=== PATIENT | female | born 1970 | race Caucasian/White ===

== ENCOUNTER 2017-01-05 13:31 | Inpatient (IN) | payer SELFPAY ==
[2017-01-05] VITALS (9 sets, daily range): BP systolic 106–149; BP diastolic 65–85; PULSE 92–120; RESP 22–36; TEMP 97.8–98.3; O2SAT 99–100
[~2017-01-05] VITALS: Ht 165.1 cm; Wt 68.5 kg
--- NOTE | 2017-01-05 13:44 | PD ---
Physical Exam Time Seen by Provider: 13:39 Narrative 46 year old female with HX of Diabetes here with C/O of vomiting & elevated blood sugars since last night. She reports her blood sugar this morning was 550 , she administered Novolin 70/30 20 U prior to arrival. Patient seen at triage desk. VS reviewed. Patient waiting bed placement. Data Data Last Documented VS Vital Signs Date Time Temp Pulse Resp B/P Pulse Ox O2 Delivery O2 Flow Rate FiO2 01/05/17 13:33 120 36 140/85 99 Room Air MDM Supervised Visit with TATIANA: Estephania Boswell Jan 05, 2017 13:43
[2017-01-05] MEDS ORDERED: SODIUM CHLOR 0.9% 1000 ML INJ 1,000 ML IV ONE ×2 (13:54→14:24)
[2017-01-05] MEDS ORDERED: NOVO7030P2 SQ (13:56)
[2017-01-05 13:59] LABS: MEAN CORPUSCULAR HGB CONC 26.7 % (32.0-36.0)
[2017-01-05] MEDS: SODIUM CHLORIDE 0.9% FLUSH 10 ML FLUSH IVF PRN ×2 (14:05→15:09)
--- NOTE | 2017-01-05 14:09 | PD ---
HPI Chief Complaint: Diabetic Time Seen by Provider: 13:50 Travel History International Travel<30 days: No Contact w/Intl Traveler<30days: No Traveled to known affect area: No History of Present Illness HPI The patient is a 46-year-old female who presents emergency department for 2 days of elevated blood glucose levels, dehydration, decreased urine output , and generalized lethargy. The patient does have a history of diabetes with previous diabetic ketoacidosis and diabetic,. The patient takes insulin 70/30, 20 units twice a day, last use was this morning. However, the patient has been obtaining her NovoLog 70/30 from [facility], has not seen a physician in over one year. The patient recently moved to the area 2 weeks ago and does not have a local primary physician. She has been trying to drink Gatorade and Powerade secondary to her dehydration and polydipsia. The patient denies any chest pain , shortness of breath, abdominal pain, or dysuria. She does complain of generalized weakness. Symptoms are moderate, possibly exacerbated by elevated blood glucose levels, and there are no current alleviating factors. [facility] Past Medical History Diabetes: Yes ?: Not LMP: 12/15/16 Past Surgical History Narrative Surgical Appendectomy, tonsillectomy, section Social History Alcohol Use: No Tobacco Use: No Substance Use: No Allergies-Medications (Allergen,Severity, Reaction): Coded Allergies: No Known Allergies (Unverified , 01/05/17) Reported Meds & Prescriptions Reported Meds & Active Scripts Active Reported Novolin 70-30 Inj (Insulin Human Isoph/Insulin Regular) 1,000 Unit/10 Ml Vial 20 Units SQ BID Review of Systems Except as stated in HPI: all other systems reviewed are Neg General / Constitutional: No: Fever, Chills HENT: Positive: Lightheadedness Cardiovascular: No: Chest Pain or Discomfort Respiratory: No: Shortness of Breath Gastrointestinal: Positive: Nausea, No: Vomiting, Diarrhea, Abdominal Pain Genitourinary: Positive: Decreased Urinary Output, No: Dysuria Musculoskeletal: Positive: Weakness Neurologic: Positive: Weakness Endocrine: Positive: Polydipsia Physical Exam Narrative GENERAL: Awake, alert, pleasant 46-year-old female who appears her stated age and has mild tachypnea. SKIN: Focused skin assessment warm/dry. HEAD: Atraumatic. Normocephalic. EYES: Pupils equal and round. No scleral icterus. No injection or drainage. ENT: No nasal bleeding or discharge. Dehydration, poor dentition. NECK: Trachea midline. No JVD. CARDIOVASCULAR: Regular, tachycardic with a heart rate 120. RESPIRATORY: Tachypnea with a respiratory rate of 32, coos mild breathing. GASTROINTESTINAL: Abdomen soft, non-tender, nondistended. No rebound tenderness , well-healed midline incisional scar. MUSCULOSKELETAL: No obvious deformities. No clubbing. No cyanosis. No edema. NEUROLOGICAL: Awake and alert. No obvious cranial nerve deficits. Motor grossly within normal limits. Normal speech. Nonfocal. PSYCHIATRIC: Appropriate mood and affect; insight and judgment normal. Data Data Last Documented VS Vital Signs Date Time Temp Pulse Resp B/P Pulse Ox O2 Delivery O2 Flow Rate FiO2 01/05/17 14:43 97 22 146/85 100 01/05/17 14:02 Room Air Orders Electrocardiogram (01/05/17 13:54) Complete Blood Count With Diff (01/05/17 13:54) Comprehensive Metabolic Panel (01/05/17 13:54) Magnesium (Mg) (01/05/17 13:54) Phosphorus (Po4) (01/05/17 13:54) Beta Hydroxybutyrate (Acetone) (01/05/17 13:54) Lactic Acid (01/05/17 13:54) Urinalysis - C+S If Indicated (01/05/17 13:54) Chest, Single Ap (01/05/17 13:54) Blood Gas Venous (Vbg) (01/05/17 13:54) Blood Glucose (01/05/17 13:54) Blood Glucose (01/05/17 14:24) Ecg Monitoring (01/05/17 13:54) Iv Access Insert/Monitor (01/05/17 13:54) Oximetry (01/05/17 13:54) NPO (01/05/17 13:54) Sodium Chlor 0.9% 1000 Ml Inj (Ns 1000 M (01/05/17 13:54) Sodium Chlor 0.9% 1000 Ml Inj (Ns 1000 M (01/05/17 14:24) Sodium Chloride 0.9% Flush (Ns Flush) (01/05/17 14:00) Troponin I (01/05/17 13:54) Lipase (01/05/17 13:54) Ketorolac Inj (Toradol Inj) (01/05/17 14:45) Logging Equipment Mechanic / Telemetry [id number] (01/05/17 15:24) ^ Insert Iv (01/05/17 15:24) Diet Npo (01/05/17 Dinner) Sodium Chlor 0.9% 1000 Ml Inj (Ns 1000 M (01/05/17 15:24) Dext 5%-Nacl 0.9% 1000 Ml Inj (D5w-Ns 10 (01/05/17 15:24) Insulin Human Regular Inj (Novolin R Inj (01/05/17 15:30) Insulin Regular (Iv Infusion) (Novolin R (01/05/17 15:30) Potassium Chlor 40 Meq Premix (Kcl 40 Me (01/05/17 15:30) Potassium Chlor 40 Meq Premix (Kcl 40 Me (01/05/17 15:30) Potassium Chlor 20 Meq Premix (Kcl 20 Me (01/05/17 15:30) Potassium Chlor 20 Meq Premix (Kcl 20 Me (01/05/17 15:30) Potassium Chlor 20 Meq Premix (Kcl 20 Me (01/05/17 15:30) Potassium Chlor 20 Meq Premix (Kcl 20 Me (01/05/17 15:30) Potassium Chlor 20 Meq Premix (Kcl 20 Me (01/05/17 15:30) Potassium Chlor 20 Meq Premix (Kcl 20 Me (01/05/17 15:30) Sodium Bicarbonate 8.4% Inj (Sodium Bica (01/05/17 15:30) Sodium Bicarbonate 8.4% Inj (Sodium Bica (01/05/17 15:30) Sodium Phosphate Inj (Sodium Phosphate I (01/05/17 15:30) Hemoglobin (Hgb) A1c (01/05/17 15:24) Basic Metabolic Panel (Bmp) (01/05/17 20:24) Basic Metabolic Panel (Bmp) (01/06/17 02:24) Basic Metabolic Panel (Bmp) (01/06/17 08:24) Basic Metabolic Panel (Bmp) (01/06/17 14:24) Magnesium (Mg) (01/05/17 20:24) Magnesium (Mg) (01/06/17 02:24) Magnesium (Mg) (01/06/17 08:24) Magnesium (Mg) (01/06/17 14:24) Phosphorus (Po4) (01/05/17 20:24) Phosphorus (Po4) (01/06/17 02:24) Phosphorus (Po4) (01/06/17 08:24) Phosphorus (Po4) (01/06/17 14:24) Beta Hydroxybutyrate (Acetone) (01/06/17 02:24) Beta Hydroxybutyrate (Acetone) (01/06/17 14:24) Urine Culture (01/05/17 15:00) Admit Order (Ed Use Only) (01/05/17 15:50) Labs Laboratory Tests Test 01/05/17 01/05/17 01/05/17 14:00 14:04 15:00 White Blood Count 32.6 TH/MM3 Red Blood Count 6.84 MIL/MM3 Hemoglobin 13.4 GM/DL Hematocrit 50.0 % Mean Corpuscular Volume 73.1 FL Mean Corpuscular Hemoglobin 19.5 PG Mean Corpuscular Hemoglobin 26.7 % Concent Red Cell Distribution Width 19.9 % Platelet Count 375 TH/MM3 Mean Platelet Volume 8.5 FL Neutrophils (%) (Auto) 90.0 % Lymphocytes (%) (Auto) 5.6 % Monocytes (%) (Auto) 4.1 % Eosinophils (%) (Auto) 0.1 % Basophils (%) (Auto) 0.2 % Neutrophils # (Auto) 29.3 TH/MM3 Lymphocytes # (Auto) 1.8 TH/MM3 Monocytes # (Auto) 1.3 TH/MM3 Eosinophils # (Auto) 0.0 TH/MM3 Basophils # (Auto) 0.1 TH/MM3 CBC Comment AUTO DIFF Sodium Level 133 MEQ/L Potassium Level 5.3 MEQ/L Chloride Level 104 MEQ/L Carbon Dioxide Level 5.6 MEQ/L Anion Gap 23 MEQ/L Blood Urea Nitrogen 16 MG/DL Creatinine 1.16 MG/DL Estimat Glomerular Filtration 51 ML/MIN Rate Random Glucose 495 MG/DL Lactic Acid Level 2.4 mmol/L Calcium Level 9.9 MG/DL Phosphorus Level 5.6 MG/DL Magnesium Level 2.5 MG/DL Total Bilirubin 0.3 MG/DL Aspartate Amino Transf 15 U/L (AST/SGOT) Alanine Aminotransferase 19 U/L (ALT/SGPT) Alkaline Phosphatase 170 U/L Troponin I 0.02 NG/ML Total Protein 10.2 GM/DL Albumin 4.7 GM/DL Lipase 107 U/L B-Hydroxybutyrate 11.47 MMOL/L Blood Gas Puncture Site I.V. Blood Gas Patient Temperature 98.6 Venous Blood pH 6.98 Venous Blood Partial Pressure 25 mmHg CO2 Venous Blood Partial Pressure 27 mmHg O2 Venous Blood HCO3 6 mmol/L Venous Blood Oxygen Saturation 28 % Venous Blood Oxygen Content 5.1 Vol % Venous Blood Base Excess -23.6 mmol/L Oxygen Delivery Device ROOM AIR Blood Gas Inspired Oxygen 21 % Urine Color LIGHT-YELLOW Urine Turbidity CLEAR Urine pH 5.5 Urine Specific [place] 1.019 Urine Protein 30 mg/dL Urine Glucose (UA) 1000 mg/dL Urine Ketones 150 mg/dL Urine Occult Blood TRACE Urine Nitrite NEG Urine Bilirubin NEG Urine Urobilinogen LESS THAN 2.0 MG/DL Urine Leukocyte Esterase LARGE Urine RBC 8 /hpf Urine WBC 11 /hpf Urine Squamous Epithelial 1 /hpf Cells Urine Bacteria RARE /hpf Microscopic Urinalysis Comment CULTURE INDICATED MDM Medical Decision Making Medical Screen Exam Complete: Yes Emergency Medical Condition: Yes Medical Record Reviewed: Yes Interpretation(s) EKG reveals normal sinus rhythm with a rate in 92. Nonspecific ST changes. Differential Diagnosis Differential diagnosis includes DKA, hyperglycemia, dehydration, electrolyte abnormality, noncompliance. Narrative Course IV was established, labs are drawn and sent, and the patient was placed on cardiac telemetry monitoring and continuous pulse oximetry monitoring. EKG was ordered and interpreted. The patient was administered 2 L of IV fluids and Accu -Cheks were obtained to 30 minutes 2. VBG was sent to lab. VBG reveals pH is 6.980 with PCO2 25.2 and bicarbonate of 5.6 consistent with partially compensated metabolic acidosis, most likely secondary to DKA. The patient's anion gap is 23, bicarbonate 5.6, UA reveals a few WBCs, may be contaminant versus UTI. Therefore, patient was administered Rocephin 1 g intravenously. Patient was placed on an insulin drip after receiving a bolus of insulin based on weight. The patient received 6 units of insulin and then was placed on an insulin drip. I discussed the patient with the on-call children's zoo caretaker, Dr. Mendez, who agrees with admission. Critical Care Narrative Aggregate critical care time was 40 minutes. Time to perform other separately billable procedures was not included in the critical care time. My time did not include minutes spent treating any other patients simultaneously or on activities that did not directly contribute to the patient's treatment. The services I provided to this patient were to treat and/or prevent clinically significant deterioration that could result in: Dehydration, sepsis, acute renal failure, arrhythmia, . I provided critical care services requiring my management, as noted below: Chart data review, documentation time, medication orders and management, vital sign assessments/reviewing monitor data, ordering and reviewing lab tests, ordering and interpreting/reviewing x-rays and diagnostic studies, care of the patient and discussion of the patient with the admitting physicians. Physician Communication Physician Communication I discussed the patient with Dr. Mendez who agrees with admission. Diagnosis Primary Impression: DKA (diabetic ketoacidoses) Qualified Code: E10.10 - Diabetic ketoacidosis without coma associated with type 1 diabetes mellitus Additional Impressions: Dehydration UTI (urinary tract infection) Qualified Code: N30.00 - Acute cystitis without hematuria Admitting Information Admitting Physician Requests: Admit Condition: Serious Kg Borrego MD Jan 05, 2017 14:08
[2017-01-05 14:14] LABS: BLOOD GAS VENOUS BASE EXCESS -23.6 mmol/L (-2-2); BLOOD GAS VENOUS HCO3 6 mmol/L (22-26); BLOOD GAS VENOUS O2 CONTENT 5.1 Vol % (9.0-17.0); BLOOD GAS VENOUS O2 HGB SAT 28 % (70-76); BLOOD GAS VENOUS PCO2 25 mmHg (44-48); BLOOD GAS VENOUS PO2 27 mmHg (35-40); BLOOD GAS VENOUS pH 6.98 (7.360-7.400); TEMP CORR TO 98.6
[2017-01-05 14:15] LABS: CRITICAL VALUE YES; DRAW SITE I.V.; FIO2 21 %; OXYGEN DEVICE ROOM AIR; STAT YES
[2017-01-05 14:27] LABS: AUTOMATED NEUTROPHIL # 29.3 TH/MM3 (1.8-7.7); BASOPHIL # 0.1 TH/MM3 (0-0.2); BASOPHIL % 0.2 % (0.0-2.0); EOSINOPHIL % 0.1 % (0.0-4.0); LYMPH % 5.6 % (9.0-44.0); LYMPHOCYTE # 1.8 TH/MM3 (1.0-4.8); MEAN CELL VOLUME 73.1 FL (80.0-100.0); MEAN CORPUSCULAR HEMOGLOBIN 19.5 PG (27.0-34.0); MONO % 4.1 % (0.0-8.0); PLATELET COUNT 375 TH/MM3 (150-450); RED BLOOD COUNT 6.84 MIL/MM3 (4.00-5.30); RED CELL DISTRIBUTION WIDTH 19.9 % (11.6-17.2); WHITE BLOOD COUNT 32.6 TH/MM3 (4.0-11.0)
[2017-01-05 14:30] LABS: HEMO FLAGS AUTO DIFF
--- NOTE | 2017-01-05 14:43 | RADRPT ---
EXAM DATE/TIME: 01/05/2017 14:08 [place] COMPARISON: No previous studies available for comparison. INDICATIONS : Patient has been short of breath since yesterday. She also states her blood sugar is high. MEDICAL HISTORY : Diabetes mellitus type II. SURGICAL HISTORY : None. ENCOUNTER: Initial ACUITY: 1 day PAIN SCORE: 0/10 LOCATION: Bilateral chest FINDINGS: A single view of the chest demonstrates the lungs to be symmetrically aerated without evidence of mas s, infiltrate or effusion. The cardiomediastinal contours are unremarkable. Osseous structures are intact. CONCLUSION: 1. No acute cardiopulmonary findings are identified. Luis Rey MD on January 05, 2017 at 14:41 Board Certified Radiologist. This report was verified electronically.
[2017-01-05] MEDS ORDERED: KETOROLAC TROMETHAMINE 30 MG/ML (IVP) VIAL IV PUSH ONE (14:45)
[2017-01-05 15:12] LABS: ALKALINE PHOSPHATASE 170 U/L (45-117); ALT (GPT) 19 U/L (10-53); ANION GAP 23 MEQ/L (5-15); AST (GOT) 15 U/L (15-37); BETA-HYDROXYBUTYRATE 11.47 MMOL/L (0.00-0.39); BICARBONATE 5.6 MEQ/L (21.0-32.0); BLOOD UREA NITROGEN 16 MG/DL (7-18); CHLORIDE 104 MEQ/L (98-107); GLOMERULAR FILTRATION RATE 51 ML/MIN (>89); MAGNESIUM 2.5 MG/DL (1.5-2.5); POTASSIUM 5.3 MEQ/L (3.5-5.1); SODIUM (NA) 133 MEQ/L (136-145); TOTAL BILIRUBIN ADULT 0.3 MG/DL (0.2-1.0)
[2017-01-05] MEDS ORDERED: DEXT 5%-NACL 0.9% 1000 ML INJ 1,000 ML IV SCH (15:24)
[2017-01-05] MEDS ORDERED: POTASSIUM CHLOR 40 MEQ PREMIX 100 ML IV PRN ×6 (15:30→16:15)
[2017-01-05] MEDS ORDERED: INSULIN REGULAR (IV INFUSION) 100 UNITS in SODIUM CHLORIDE 0.9% INJ 99 ML IV SCH ×2 (15:30→16:15)
[2017-01-05] MEDS ORDERED: SODIUM PHOSPHATE INJ 15 MMOL in SODIUM CHLORIDE 0.9% INJ 100 ML IV PRN ×2 (15:30→16:15)
[2017-01-05] MEDS ORDERED: SODIUM BICARBONATE 8.4% SOLN 50 MEQ/50 ML VIAL IV PRN ×4 (15:30→16:15)
[2017-01-05] MEDS ORDERED: INSULIN HUMAN REGULAR 1,000 UNITS/10 ML VIAL IV PUSH ONE (15:30)
[2017-01-05] MEDS ORDERED: POTASSIUM CHLOR 20 MEQ PREMIX 100 ML IV PRN ×13 (15:30→16:15)
[2017-01-05 15:41] LABS: BACTERIA, URINE RARE /hpf; BLOOD, URINE TRACE (NEG); COMMENT (UR) CULTURE INDICATED; CULTURE IF INDICATED CULTURE INDICATED; GLUCOSE,URINE 1000 mg/dL (NEG); KETONE, URINE 150 mg/dL (NEG); NITRITE,URINE NEG (NEG); PH, URINE 5.5 (5.0-8.5); SQUAMOUS EPITHELIAL CELL URINE 1 /hpf (0-5); URINE COLOR LIGHT-YELLOW (YELLW/STRAW)
[2017-01-05] MEDS: SODIUM CHLOR 0.9% 1000 ML INJ 1,000 ML IV SCH ×5 (15:53→23:38)
[2017-01-05] MEDS: DEXT 5%-NACL 0.9% 1000 ML INJ 1,000 ML IV SCH ×2 (16:12→21:12)
[2017-01-05] MEDS ORDERED: POTASSIUM PHOSPHATE MONOBASIC 500 MG TAB PO PRN (16:15)
[2017-01-05] MEDS ORDERED: POTASSIUM CHLORIDE 25 MEQ EFFERVESCENT TAB PO PRN (16:15)
[2017-01-05] MEDS ORDERED: ONDANSETRON HCL 4 MG/2 ML VIAL IV PRN (16:15)
[2017-01-05] MEDS ORDERED: BISACODYL 10 MG SUPP RECTAL PRN (16:15)
[2017-01-05] MEDS ORDERED: RESP: ALBUTEROL 2.5 MG/IPRATROPIUM 0.5 MG NEB (PRN) INH (16:15)
[2017-01-05] MEDS ORDERED: POTASSIUM PHOSPHATE MONOBASIC 500 MG TAB PO/TUBE PRN (16:15)
[2017-01-05] MEDS ORDERED: LACTULOSE SYRUP 20 GM/30 ML CUP PO PRN (16:15)
[2017-01-05] MEDS ORDERED: CHLORHEXIDINE GLUCONATE 2 % 1 PACK (2 CLOTHS) TOP PRN ×2 (16:15→16:30)
[2017-01-05] MEDS ORDERED: SODIUM PHOSPHATE INJ 30 MMOL in SODIUM CHLOR 0.9% 250 ML INJ 240 ML IV PRN (16:15)
[2017-01-05] MEDS ORDERED: ACETAMINOPHEN 325 MG TAB PO PRN (16:15)
[2017-01-05] MEDS ORDERED: MISCELLANEOUS NURSING INFORMATION XX SCH ×2 (16:15→16:30)
[2017-01-05] MEDS ORDERED: MAGNESIUM HYDROXIDE SUSP 30 ML CUP PO PRN (16:15)
[2017-01-05] MEDS ORDERED: SODIUM CHLORIDE 0.9% FLUSH 10 ML FLUSH IV FLUSH PRN (16:15)
[2017-01-05] MEDS ORDERED: MAGNESIUM OXIDE 400 MG TAB PO PRN (16:15)
[2017-01-05] MEDS ORDERED: MAGNESIUM SULFATE INJ 2 GM in SODIUM CHLORIDE 0.9% INJ 96 ML IV PRN (16:15)
[2017-01-05] MEDS ORDERED: SENNOSIDES 8.6 MG TAB PO PRN (16:15)
[2017-01-05] MEDS ORDERED: MAGNESIUM SULFATE INJ 4 GM in SODIUM CHLORIDE 0.9% INJ 92 ML IV PRN (16:15)
[2017-01-05] MEDS ORDERED: POTASSIUM PHOSPHATE INJ 30 MMOL in SODIUM CHLOR 0.9% 250 ML INJ 250 ML IV PRN (16:15)
[2017-01-05] MEDS ORDERED: cefTRIAXone INJ 1,000 MG in SODIUM CHLORIDE 0.9% INJ 100 ML IV ONE (16:15)
--- NOTE | 2017-01-05 16:41 | HHI.HP ---
HPI Service Critical Care Medicine Primary Care Physician No Primary Care Physician Admission Diagnosis DKA, dehydration Diagnosis: Travel History International Travel<30 Days: No Contact w/Intl Traveler <30 Da: No Traveled to Known Affected Are: No History of Present Illness The patient is a 46-year-old female who presents emergency department for 2 days of elevated blood glucose levels, dehydration, decreased urine output , and generalized lethargy. The patient does have a history of diabetes with previous diabetic ketoacidosis and diabetic,. The patient takes insulin 70/30, 20 units twice a day, last use was this morning. However, the patient has been obtaining her NovoLog 70/30 from [facility], has not seen a physician in over one year. The patient recently moved to the area 2 weeks ago and does not have a local primary physician. The patient denies any chest pain, shortness of breath , abdominal pain, or dysuria. She does complain of generalized weakness. Symptoms are moderate, possibly exacerbated by elevated blood glucose levels, and there are no current alleviating factors. Upon admission to the ED, the patient was noted to have ketonuria, with a blood glucose level 495. Critical care medicine was consulted for management. History PFSH Past Medical History Diabetes: Yes ?: Not LMP: 12/15/16 Past Surgical History Narrative Surgical Appendectomy, tonsillectomy, section Social History Alcohol Use: No Tobacco Use: No Substance Use: No Allergies-Medications Allergies-Medications (Allergen,Severity, Reaction): Coded Allergies: No Known Allergies (Unverified , 01/05/17) Reported Meds & Prescriptions Reported Meds & Active Scripts Active Reported Novolin 70-30 Inj (Insulin Human Isoph/Insulin Regular) 1,000 Unit/10 Ml Vial 20 Units SQ BID ROS Review of Systems Except as stated in HPI: all other systems reviewed are Neg General / Constitutional: No: Fever, Chills HENT: Positive: Lightheadedness Cardiovascular: No: Chest Pain or Discomfort Respiratory: No: Shortness of Breath Gastrointestinal: Positive: Nausea, No: Vomiting, Diarrhea, Abdominal Pain Genitourinary: Positive: Decreased Urinary Output, No: Dysuria Musculoskeletal: Positive: Weakness Neurologic: Positive: Weakness Endocrine: Positive: Polydipsia Past Family Social History Allergies: Coded Allergies: No Known Allergies (Unverified , 01/05/17) Past Medical History Diabetes mellitus Reported Medications see MAR Active Ordered Medications see [facility] Physical Exam Vital Signs Vital Signs Date Time Temp Pulse Resp B/P Pulse Ox O2 Delivery O2 Flow Rate FiO2 01/05/17 14:43 97 22 146/85 100 01/05/17 14:02 22 100 Room Air 01/05/17 13:57 98 26 100 Room Air 01/05/17 13:33 120 36 140/85 99 Room Air Physical Exam GENERAL: Underweight female tachypneic noted moderate distress SKIN: Warm and dry. Skin turgor poor. HEAD: Atraumatic. Normocephalic. EYES: Pupils equal and round. No scleral icterus. No injection or drainage. ENT: No nasal bleeding or discharge. Mucous membranes pink and dry. NECK: Trachea midline. No JVD. Uvula midline CARDIOVASCULAR: Tachycardic rate, regular rhythm. RESPIRATORY: No accessory muscle use. Clear to auscultation. Breath sounds equal bilaterally. GASTROINTESTINAL: Abdomen soft, non-tender, nondistended. No guarding. MUSCULOSKELETAL: Extremities without clubbing, cyanosis, or edema. No obvious deformities. NEUROLOGICAL: Awake and alert. RASS 0. No gross focal/sensory deficits. Follows commands in all 4 extremities. Laboratory Laboratory Tests Test 01/05/17 01/05/17 01/05/17 14:00 14:04 15:00 White Blood Count 32.6 Red Blood Count 6.84 Hemoglobin 13.4 Hematocrit 50.0 Mean Corpuscular Volume 73.1 Mean Corpuscular Hemoglobin 19.5 Mean Corpuscular Hemoglobin 26.7 Concent Red Cell Distribution Width 19.9 Platelet Count 375 Mean Platelet Volume 8.5 Neutrophils (%) (Auto) 90.0 Lymphocytes (%) (Auto) 5.6 Monocytes (%) (Auto) 4.1 Eosinophils (%) (Auto) 0.1 Basophils (%) (Auto) 0.2 Neutrophils # (Auto) 29.3 Lymphocytes # (Auto) 1.8 Monocytes # (Auto) 1.3 Eosinophils # (Auto) 0.0 Basophils # (Auto) 0.1 CBC Comment AUTO DIFF Sodium Level 133 Potassium Level 5.3 Chloride Level 104 Carbon Dioxide Level 5.6 Anion Gap 23 Blood Urea Nitrogen 16 Creatinine 1.16 Estimat Glomerular Filtration 51 Rate Random Glucose 495 Lactic Acid Level 2.4 Calcium Level 9.9 Phosphorus Level 5.6 Magnesium Level 2.5 Total Bilirubin 0.3 Aspartate Amino Transf 15 (AST/SGOT) Alanine Aminotransferase 19 (ALT/SGPT) Alkaline Phosphatase 170 Troponin I 0.02 Total Protein 10.2 Albumin 4.7 Lipase 107 B-Hydroxybutyrate 11.47 Blood Gas Puncture Site I.V. Blood Gas Patient Temperature 98.6 Venous Blood pH 6.98 Venous Blood Partial Pressure 25 CO2 Venous Blood Partial Pressure 27 O2 Venous Blood HCO3 6 Venous Blood Oxygen Saturation 28 Venous Blood Oxygen Content 5.1 Venous Blood Base Excess -23.6 Oxygen Delivery Device ROOM AIR Blood Gas Inspired Oxygen 21 Urine Color LIGHT-YELLOW Urine Turbidity CLEAR Urine pH 5.5 Urine Specific [place] 1.019 Urine Protein 30 Urine Glucose (UA) 1000 Urine Ketones 150 Urine Occult Blood TRACE Urine Nitrite NEG Urine Bilirubin NEG Urine Urobilinogen LESS THAN 2.0 Urine Leukocyte Esterase LARGE Urine RBC 8 Urine WBC 11 Urine Squamous Epithelial 1 Cells Urine Bacteria RARE Microscopic Urinalysis Comment CULTURE INDICATED Date/Time Procedure Status Source Growth 01/05/17 15:00 Urine Culture Received Urine Clean Catch Pending Result Diagram: 01/05/17 1400 01/05/17 1400 Imaging Last Impressions Chest X-Ray 01/05/17 1354 Signed Impressions: Service Date/Time: Tuesday, January 05, 2017 14:08 - CONCLUSION: 1. No acute cardiopulmonary findings are identified. Luis Rey MD Septic Shock Reassessment Heart: Other (tachycardia) Lungs: Clear Skin: Warm, Dry Peripheral Pulses: Bounding Right Radial Bounding Left Radial Bounding Right Dorsalis Pedis Bounding Left Dorsalis Pedis Assessment and Plan Assessment and Plan This is a 46-year-old female, with presumed UTI and DKA. Currently with signs of dehydration, hypovolemia. Neurologic: GCS 15 Neurochecks per ICU protocol Respiratory Dyspnea Maintain O2 sat greater than 92% Oxygen 1-4 L/m via nasal cannula Bronchodilators every 2 hours when necessary for wheezing hest x-ray no acute process Cardiovascular: Sinus tachycardia secondary to hypovolemia due to DKA Telemetry Obtain EKG Renal: Insert Leiva catheter -- Strict I/Os FEN/GI: Diabetic ketoacidosis Metabolic acidosis secondary to DKA Bolus 3 L 0.9 normal saline Insulin infusion per DKA protocol Continue hydration Sodium bicarbonate 100 mEq IV push now Heme/ID: Presumed UTI Follow up urine culture results Obtain blood cultures 2 Empiric dosing Zosyn Obtain lactate levels Endocrine: Diabetes mellitus DKA Insulin infusion per DKA protocol, transition per DKA protocol Prophylaxis: GI Prophylaxis Protonix DVT Prophylaxis -- SCDs Heparin twice a day Lines: Peripheral IVs 2 Dispo: This patient remains critically ill with one or more organ systems which are or may become a threat to life. I have spent in excess of 35 minutes discontinuously in the care and management of this patient. This time is exclusive of procedures, and includes, but is not limited to, evaluation of the patient, review of the medical record, discussions with family, consultants, nursing staff, or respiratory therapy, and documentation in the medical record. Code Status Full Discussed Condition With Patient, ED RN at bedside Flory Mendez MD Jan 05, 2017 16:41
[2017-01-05 16:49] LABS: BANDS 5 % (0-6); BASOPHILS 1 % (0-2); NEUTROPHIL # MANUAL DIFF 28.7 TH/MM3 (1.8-7.7); POLYS (SEG NEUTROPHILS) 83 % (16-70); SCAN/DIFF FINAL DIFF MANUAL; WBC DIFF SAMPLE 100
[2017-01-05 16:50] LABS: OVALOCYTES 1+ (NORMAL); PLATELET ESTIMATE SMEAR NORMAL (NORMAL); PLATELET MORPHOLOGY NORMAL (NORMAL)
[2017-01-05] MEDS: ARTIFICIAL TEARS OPTH SOLN 15 ML BTL EACH EYE SCH (18:00)
[2017-01-05] MEDS: PIPERACIL-TAZO 4.5 GM PREMIX 100 ML IV SCH ×2 (18:03→23:32)
[2017-01-05] MEDS: HEPARIN SODIUM - SQ 10,000 UNITS/ML VIAL SQ SCH (18:03)
[2017-01-05 18:40] LABS: LACTIC ACID GHOST NOT REPORTABLE
[2017-01-05] MEDS: SODIUM CHLORIDE 0.9% FLUSH 10 ML FLUSH IV FLUSH SCH (21:00)
[2017-01-05 21:14] LABS: MEAN CORPUSCULAR HGB CONC 28.2 % (32.0-36.0)
[2017-01-05] MEDS: FAMOTIDINE 20 MG TAB PO SCH (21:23)
[2017-01-05] MEDS: DOCUSATE SODIUM 50 MG/SENNA 8.6 MG TAB PO SCH (21:23)
[2017-01-05] MEDS: RESP: ALBUTEROL 2.5 MG/IPRATROPIUM 0.5 MG NEB (SCH) INH (22:10)
[2017-01-05 23:47] LABS: ANION GAP 18 MEQ/L (5-15); BICARBONATE 7.4 MEQ/L (21.0-32.0); BLOOD UREA NITROGEN 10 MG/DL (7-18); CHLORIDE 119 MEQ/L (98-107); GLOMERULAR FILTRATION RATE 92 ML/MIN (>89); MAGNESIUM 1.8 MG/DL (1.5-2.5); POTASSIUM 4.1 MEQ/L (3.5-5.1); SODIUM (NA) 144 MEQ/L (136-145)
[2017-01-06] VITALS (22 sets, daily range): BP systolic 83–118; BP diastolic 50–69; PULSE 72–96; RESP 12–26; TEMP 98.3–99.5; O2SAT 98–100
[2017-01-06] MEDS: DEXT 5%-NACL 0.9% 1000 ML INJ 1,000 ML IV SCH ×2 (02:12→07:38)
[2017-01-06] MEDS: CHLORHEXIDINE GLUCONATE 2 % 1 PACK (2 CLOTHS) TOP SCH (03:10)
[2017-01-06] MEDS: RESP: ALBUTEROL 2.5 MG/IPRATROPIUM 0.5 MG NEB (SCH) INH ×4 (03:18→19:59)
[2017-01-06] MEDS ORDERED: CHLORHEXIDINE GLUCONATE 2 % 1 PACK (2 CLOTHS) TOP SCH (04:00)
[2017-01-06 04:01] LABS: HEMATOCRIT 34.3 % (35.0-46.0); MEAN CELL VOLUME 68.6 FL (80.0-100.0); MEAN CORPUSCULAR HEMOGLOBIN 19.4 PG (27.0-34.0); PLATELET COUNT 230 TH/MM3 (150-450); RED CELL DISTRIBUTION WIDTH 18.9 % (11.6-17.2); REVIEW FLAG FINAL
[2017-01-06] MEDS: SODIUM CHLOR 0.9% 1000 ML INJ 1,000 ML IV SCH ×4 (04:12→23:15)
[2017-01-06 04:39] LABS: BETA-HYDROXYBUTYRATE 2.79 MMOL/L (0.00-0.39); BICARBONATE 11.5 MEQ/L (21.0-32.0); MAGNESIUM 1.6 MG/DL (1.5-2.5); POTASSIUM 3.2 MEQ/L (3.5-5.1)
[2017-01-06] MEDS: HEPARIN SODIUM - SQ 10,000 UNITS/ML VIAL SQ SCH ×2 (05:06→16:40)
[2017-01-06] MEDS: PIPERACIL-TAZO 4.5 GM PREMIX 100 ML IV SCH ×4 (05:06→23:15)
[2017-01-06] MEDS: DOCUSATE SODIUM 50 MG/SENNA 8.6 MG TAB PO SCH ×2 (07:37→20:20)
[2017-01-06] MEDS: POTASSIUM CHLOR 20 MEQ PREMIX 100 ML IV PRN ×2 (07:37→10:11)
[2017-01-06] MEDS: FAMOTIDINE 20 MG TAB PO SCH ×2 (07:37→20:20)
[2017-01-06] MEDS: SODIUM CHLORIDE 0.9% FLUSH 10 ML FLUSH IV FLUSH SCH ×2 (07:47→20:21)
[2017-01-06] MEDS: ARTIFICIAL TEARS OPTH SOLN 15 ML BTL EACH EYE SCH ×3 (09:00→17:57)
[2017-01-06] MEDS ORDERED: DEXTROSE 50% IN WATER 50 ML VIAL(D50) IV PRN (10:45)
[2017-01-06] MEDS ORDERED: DC previous DKA orders (HMC 1917) ONE (10:45)
[2017-01-06] MEDS ORDERED: DC Insulin drip 2 hrs post basal insulin dose ONE (10:45)
[2017-01-06] MEDS ORDERED: GLUCAGON 1 MG/ML VIAL OTHER PRN (10:45)
[2017-01-06] MEDS ORDERED: INSULIN DETEMIR 100 UNITS/ML VIAL SQ SCH (10:45)
[2017-01-06] MEDS: INSULIN ASPART SUPPLEMENTAL SCALE SQ SCH ×3 (11:00→20:20)
[2017-01-06 11:08] LABS: BICARBONATE 17.3 MEQ/L (21.0-32.0); MAGNESIUM 1.5 MG/DL (1.5-2.5); POTASSIUM 3.1 MEQ/L (3.5-5.1)
--- NOTE | 2017-01-06 11:14 | HHI.CCPN ---
Subjective Remarks/Hospital Course The patient is a 46-year-old female who presents emergency department for 2 days of elevated blood glucose levels, dehydration, decreased urine output , and generalized lethargy. The patient does have a history of diabetes with previous diabetic ketoacidosis and diabetic,. The patient takes insulin 70/30, 20 units twice a day, last use was this morning. However, the patient has been obtaining her NovoLog 70/30 from [facility], has not seen a physician in over one year. The patient recently moved to the area 2 weeks ago and does not have a local primary physician. The patient denies any chest pain, shortness of breath , abdominal pain, or dysuria. She does complain of generalized weakness. Symptoms are moderate, possibly exacerbated by elevated blood glucose levels, and there are no current alleviating factors. Upon admission to the ED, the patient was noted to have ketonuria, with a blood glucose level 495. Critical care medicine was consulted for management. Subjective: 01/06: Patient transitioned from insulin infusion to sliding-scale insulin this a.m.. BMP pending. She was noted to have a vaginal discharge CERTIFIED WELLNESS PROGRAM COORDINATOR was consulted. By mouth diet 2200 ADA calorie instituted. Objective Vital Signs Date Time Temp Pulse Resp B/P Pulse Ox O2 Delivery O2 Flow Rate FiO2 01/06/17 10:00 81 01/06/17 09:00 17 89/52 100 01/06/17 08:51 21 01/06/17 04:00 99.2 01/05/17 18:08 Room Air Intake and Output 01/05/17 01/05/17 01/05/17 07:59 15:59 23:59 Intake Total 1612 ml Output Total 895 ml Balance 717 ml Result Diagram: 01/06/17 0320 01/06/17 0320 Other Results Laboratory Tests Test 01/05/17 14:04 Blood Gas Puncture Site I.V. Blood Gas Patient Temperature 98.6 Venous Blood pH 6.98 (7.360-7.400) Venous Blood Partial Pressure 25 mmHg (44-48) CO2 Venous Blood Partial Pressure 27 mmHg (35-40) O2 Venous Blood HCO3 6 mmol/L (22-26) Venous Blood Oxygen Saturation 28 % (70-76) Venous Blood Oxygen Content 5.1 Vol % (9.0-17.0) Venous Blood Base Excess -23.6 mmol/L (-2-2) Oxygen Delivery Device ROOM AIR Blood Gas Inspired Oxygen 21 % Imaging Last Impressions Chest X-Ray 01/05/17 1354 Signed Impressions: Service Date/Time: Thursday, January 05, 2017 14:08 - CONCLUSION: 1. No acute cardiopulmonary findings are identified. Luis Rey MD Objective Remarks GENERAL: Underweight female in no apparent distress SKIN: Warm and dry. HEAD: Atraumatic. Normocephalic. EYES: Pupils equal and round. No scleral icterus. No injection or drainage. ENT: No nasal bleeding or discharge. Mucous membranes pink and moist NECK: Trachea midline. No JVD. Uvula midline CARDIOVASCULAR: Regular rate, regular rhythm. RESPIRATORY: No accessory muscle use. Clear to auscultation. Breath sounds equal bilaterally. GASTROINTESTINAL: Abdomen soft, non-tender, nondistended. No guarding. MUSCULOSKELETAL: Extremities without clubbing, cyanosis, or edema. No obvious deformities. NEUROLOGICAL: Awake and alert. RASS 0. No gross focal/sensory deficits. Follows commands in all 4 extremities. Urinary Catheter: Yes Assessment to: Continue A/P Assessment and Plan Neurologic: GCS 15 Neurochecks per ICU protocol Respiratory Dyspnea-resolved Maintain O2 sat greater than 92%, currently on room air O2 sat 97% Oxygen 1-4 L/m via nasal cannula as needed Bronchodilators every 2 hours when necessary for wheezing hest x-ray no acute process Cardiovascular: Sinus tachycardia secondary to hypovolemia due to DKA-resolved Telemetry-normal sinus rhythm Maintain MAP greater than 65 mmHg Renal: Discontinue Leiva catheter -- Strict I/Os FEN/GI: Diabetic ketoacidosis-resolved Metabolic acidosis secondary to DKA-resolved Transition to subcutaneous insulin-Levemir Discontinue DKA protocol 2200-calorie ADA diet Diabetic education Heme/ID: Presumed UTI Follow up urine culture results 01/05 blood cultures 2-NGTD Empiric dosing Zosyn (day 2) CERTIFIED WELLNESS PROGRAM COORDINATOR consult vaginal discharge-obtain culture, follow-up results Endocrine: Diabetes mellitus DKA Transition per DKA protocol-subcutaneous Levemir twice a day Prophylaxis: GI Prophylaxis Protonix DVT Prophylaxis -- SCDs Heparin twice a day Lines: Peripheral IVs 2 Dispo: Discussed with patient, family and CHICKEN HATCHERY HELPER at bedside. Level 3 Physician Flory Echevarria MD Jan 06, 2017 11:13
--- NOTE | 2017-01-06 12:36 | PD.CONS ---
History of Present Illness Service [employer] Hospitalist Consult Requested By Dr. Mendez Reason for Consult Vaginal discharge Primary Care Physician No Primary Care Physician Diagnoses: History of Present Illness Patient is a 46-year-old G 3 P3 with history of diabetes who presented to the ED with vomiting and subjective fever. She was admitted to the ICU for DKA and UTI. Consult to [employer] PERSON hospitalist was requested due to vaginal discharge noted during urinary catheter placement. The patient states she has had no vaginal discharge in the last year. She states she did not notice any discharge so they mentioned it in the hospital. She denies sexual activity in last 6 months. She denies ever having any STI's. She reports UTIs remotely, maybe 2 and her whole life. She does know she has had multiple yeast infections. She denies any dysuria, urinary frequency, vaginal pain, itching. OB history: Patient is a , 2, 1. Vaginal deliveries were in 1992, 1994. was in 1996. Each delivery was term, largest vaginal delivery was 8 lbs. 14 oz. SPECIAL[employer]ISHING UTILITY PERSON history: Remote OCP use in her teens No current contraception She did have cervical dysplasia noted in 1992, got a LEEP which she reports was normal. She had 2 normal Paps thereafter. He is not had a Pap since 1997. Patient says she has stopped going that she does not like doctors. She reports that she had her last menstrual period December 15, and that her periods have been heavier than normal lately but had been regular frequency from sees every 3 weeks for years. Review of Systems Except as stated in HPI: all other systems reviewed are Neg Past Family Social History Allergies: Coded Allergies: No Known Allergies (Unverified , 01/05/17) Past Medical History Diabetes, multiple yeast infections Past Surgical History Appendectomy, 1988 Breast lumpectomy, 1988, right Tonsillectomy, remotely Reported Medications Reported Meds & Active Scripts Active Reported Novolin 70-30 Inj (Insulin Human Isoph/Insulin Regular) 1,000 Unit/10 Ml Vial 20 Units SQ BID Active Ordered Medications Inpatient Medications Acetaminophen (Tylenol) 650 mg Q6H PRN PO PAIN 1-10 AND/OR FEVER >101F; Start 01/05/17 at 16:15 Albuterol/ Ipratropium (Duoneb Neb) 1 ampule Q2HR NEB PRN INH WHEEZING; Start 01/05/17 at 16:15 Artificial Tears (Tears Naturale Opth Soln) 1 drop TID EACH EYE ; Start at 18:00 Bisacodyl (Dulcolax Supp) 10 mg DAILY PRN RECTAL SEVERE CONSITIPATION; Start at 16:15 Ceftriaxone Sodium 1000 mg/ Sodium Chloride 100 ml @ 200 mls/hr ONCE ONCE IV Last administered on 01/05/17 16:12; Start 01/05/17 at 16:15; Stop 01/05/17 at 16:44; Status DC Chlorhexidine Gluconate (Chlorhexidine 2% Cloth) 3 pack UNSCH PRN TOP HYGIENIC CARE; Start 01/05/17 at 16:30 Dextrose (D50w (Vial) Inj) 50 ml UNSCH PRN IV HYPOGLYCEMIA-SEE COMMENTS; Start 01/06/17 at 10:45 Dextrose/Sodium Chloride 1,000 ml @ 200 mls/hr Q5H IV Last administered on 07:38; Start 01/05/17 at 16:12; Stop 01/06/17 at 10:57; Status DC Dextrose/Sodium Chloride (D5W-NS 1000 ml Inj) 1,000 ml @ 200 mls/hr Q5H IV ; Start 01/05/17 at 15:24; Stop 01/05/17 at 17:46; Status DC Famotidine (Pepcid) 20 mg Q12HR PO Last administered on 01/06/17 07:37; Start 01/05/17 at 21:00 Glucagon (Glucagon Inj) 1 mg UNSCH PRN OTHER HYPOGLYCEMIA-SEE COMMENTS; Start 01/06/17 at 10:45 Heparin Sodium (Porcine) (Heparin Inj) 5,000 units Q12H SQ Last administered on 01/06/17 05:06; Start 01/05/17 at 18:00 Insulin Aspart (NovoLOG SUPPLEMENTAL SCALE) 1 ACHS SLIDING SCALE SQ ; Start at 11:00 Insulin Detemir (Levemir Inj) 7 units DAILY SQ ; Start 01/06/17 at 10:45 Insulin Human Regular 100 units/ Sodium Chloride 100 ml @ 0 mls/hr TITRATE IV ; Start 01/05/17 at 16:15; Stop 01/06/17 at 13:00 Insulin Human Regular 6 units 6 units BOLUS ONCE IV PUSH Last administered on 01/05/17 16:06; Start 01/05/17 at 15:30; Stop 01/05/17 at 15:31; Status DC Insulin Human Regular/Sodium Chloride (NovoLIN R (IV INFUSION)/NS Inj) 100 ml @ 0 mls/hr TITRATE IV Last administered on 01/05/17 16:07; Start 01/05/17 at 15: 30; Stop 01/05/17 at 16:36; Status DC Ketorolac Tromethamine 15 mg 15 mg ONCE ONCE IV PUSH Last administered on 01/05 15:01; Start 01/05/17 at 14:45; Stop 01/05/17 at 14:46; Status DC Lactulose 30 ml 30 ml DAILY PRN PO SEVERE CONSITIPATION; Start 01/05/17 at 16: 15 Magnesium Hydroxide (Milk Of Magnesia Liq) 30 ml Q12H PRN PO MILD - MODERATE CONSTIPATION; Start 01/05/17 at 16:15 Magnesium Oxide 800 mg 800 mg UNSCH PRN PO For Magnesium 1.2 - 1.6 mg/dL; Start 01/05/17 at 16:15 Magnesium Sulfate 2 gm/Sodium Chloride 100 ml @ 50 mls/hr UNSCH PRN IV For Magnesium 1.2 - 1.6 mg/dL; Start 01/05/17 at 16:15 Magnesium Sulfate/ Sodium Chloride (Magnesium Sulfate Inj/NS Inj) 100 ml @ 50 mls/hr UNSCH PRN IV For Magnesium 0.9 - 1.1 mg/dL; Start 01/05/17 at 16:15 Miscellaneous Information 1 ONCE ONCE .XX Last administered on 01/06/17 10:45 ; Start 01/06/17 at 10:45; Stop 01/06/17 at 10:56; Status DC Ondansetron HCl (Zofran Inj) 4 mg Q6H PRN IV MILD NAUSEA OR VOMITING Last administered on 01/05/17 23:32; Start 01/05/17 at 16:15 Piperacillin Sod/ Tazobactam Sod (Zosyn 4.5 Gm Premix) 100 ml @ 200 mls/hr Q6H IV Last administered on 01/06/17 12:22; Start 01/05/17 at 18:00 Potassium Phosphate 2000 mg 2,000 mg UNSCH PRN PO/TUBE SEE LABEL COMMENTS; Start 01/05/17 at 16:15 Potassium Phosphate 30 mmol/ Sodium Chloride 260 ml @ 42 mls/hr UNSCH PRN IV SEE LABEL COMMENTS Last administered on 01/06/17 05:39; Start 01/05/17 at 16:15 Potassium Bicarb/ Potassium Chloride 50 meq 50 meq UNSCH PRN PO For Potassium 3.3 - 3.5 mEq/L; Start 01/05/17 at 16:15 Potassium Chloride 100 ml @ 50 mls/hr Q2H PRN IV For Potassium 3.3 - 3.5 mEq/L ; Start 01/05/17 at 16:15 Potassium Chloride (KCl 20 Meq Premix Inj) 100 ml @ 50 mls/hr Q2H PRN IV For Potassium 2.8 - 3.2 mEq/L; Start 01/05/17 at 16:15 Potassium Chloride (KCl 40 Meq Premix Inj) 100 ml @ 50 mls/hr Q2H PRN IV SEE LABEL COMMENTS; Start 01/05/17 at 16:15; Stop 01/06/17 at 10:57; Status DC Senna/Docusate Sodium (Loan-Colace) 1 tab BID PO Last administered on 07:37; Start 01/05/17 at 21:00 Sennosides (Senokot) 17.2 mg Q12H PRN PO MODERATE - SEVERE CONSTIPATION Last administered on 01/06/17 07:37; Start 01/05/17 at 16:15 Sodium Bicarbonate 100 meq 100 meq UNSCH PRN IV SEE LABEL COMMENTS; Start 01/05 at 15:30; Stop 01/05/17 at 17:46; Status DC Sodium Bicarbonate 50 meq 50 meq UNSCH PRN IV SEE LABEL COMMENTS; Start at 16:15; Stop 01/06/17 at 10:57; Status DC Sodium Bicarbonate (Sodium Bicarbonate 8.4% Inj) 100 meq UNSCH PRN IV SEE LABEL COMMENTS; Start 01/05/17 at 16:15; Stop 01/06/17 at 10:57; Status DC Sodium Chloride (NS 1000 ml Inj) 1,000 ml @ 2,000 mls/hr Q30M ONCE IV Last administered on 01/05/17 14:04; Start 01/05/17 at 14:24; Stop 01/05/17 at 14:53 ; Status DC Sodium Chloride (NS Flush) 2 ml BID IV FLUSH ; Start 01/05/17 at 21:00 Sodium Phosphate 15 mmol/Sodium Chloride 105 ml @ 25 mls/hr UNSCH PRN IV SEE LABEL COMMENTS; Start 01/05/17 at 15:30; Stop 01/05/17 at 17:46; Status DC Sodium Phosphate/ Sodium Chloride (Sodium Phosphate Inj/NS 250 ml Inj) 250 ml @ 42 mls/hr UNSCH PRN IV For Phosphorus < 2.5 mg/dL; Start 01/05/17 at 16:15 Sodium Phosphate/ Sodium Chloride (Sodium Phosphate Inj/NS Inj) 105 ml @ 25 mls /hr UNSCH PRN IV SEE LABEL COMMENTS; Start 01/05/17 at 16:15; Stop 01/06/17 at 10:57; Status DC Family History Noncontributory Social History Denies smoking, drinking alcohol, illicit drug use Physical Exam Vital Signs Vital Signs Date Time Temp Pulse Resp B/P Pulse Ox O2 Delivery O2 Flow Rate FiO2 01/06/17 10:00 81 01/06/17 09:00 86 01/06/17 09:00 86 01/06/17 09:00 86 17 89/52 100 01/06/17 08:51 100 21 01/06/17 08:00 80 01/06/17 08:00 80 14 107/57 100 01/06/17 08:00 80 01/06/17 06:00 83 01/06/17 06:00 83 16 98/56 99 01/06/17 05:00 88 16 99/57 99 01/06/17 05:00 88 01/06/17 04:00 99.2 96 16 111/59 100 01/06/17 04:00 96 01/06/17 03:11 90 15 83/50 100 01/06/17 03:11 90 01/06/17 03:00 87 01/06/17 03:00 87 17 84/50 100 01/06/17 02:00 90 01/06/17 00:00 99.5 96 19 118/56 100 01/06/17 00:00 95 01/05/17 22:10 100 21 01/05/17 22:00 92 01/05/17 20:00 98 01/05/17 20:00 98.3 98 25 106/65 100 6/14/17 18:08 97.8 102 24 149/83 99 Room Air 01/05/17 17:05 97.9 105 24 140/81 100 Blow-by 01/05/17 16:10 97.8 102 22 139/79 100 Room Air 01/05/17 16:01 22 01/05/17 14:43 97 22 146/85 100 01/05/17 14:02 22 100 Room Air 01/05/17 13:57 98 26 100 Room Air 01/05/17 13:33 120 36 140/85 99 Room Air Physical Exam GENERAL: Well-nourished, well-developed female patient in no apparent distress. She is lying in ICU bed. She is watching TV. SKIN: Warm and dry. No rashes. HEAD: Normocephalic and atraumatic. EYES: No scleral icterus. No injection or drainage. ENT: No nasal drainage noted. Mucous membranes pink. Airway patent. NECK: Supple, trachea midline. No JVD. CARDIOVASCULAR: Regular rate and rhythm without murmurs, gallops, or rubs. RESPIRATORY: Breath sounds equal bilaterally. No accessory muscle use. ABDOMEN/GI: Abdomen soft, non-tender, bowel sounds present, no rebound, no guarding GENITOURINARY: External Genitalia: Notable for erythema around the vaginal opening. There is no discomfort during exam. There is curd-like discharge noted at the vaginal opening. EXTREMITIES: No cyanosis or edema. BACK: Nontender without obvious deformity. No CVA tenderness. NEUROLOGICAL: Awake and alert. Motor and sensory grossly within normal limits. Five out of 5 muscle strength in all muscle groups. Normal speech. Laboratory Laboratory Tests Test 01/05/17 01/05/17 01/05/17 01/05/17 14:00 14:04 15:00 16:30 White Blood Count 32.6 Red Blood Count 6.84 Hemoglobin 13.4 Hematocrit 50.0 Mean Corpuscular Volume 73.1 Mean Corpuscular Hemoglobin 19.5 Mean Corpuscular Hemoglobin 26.7 Concent Red Cell Distribution Width 19.9 Platelet Count 375 Mean Platelet Volume 8.5 Neutrophils (%) (Auto) 90.0 Lymphocytes (%) (Auto) 5.6 Monocytes (%) (Auto) 4.1 Eosinophils (%) (Auto) 0.1 Basophils (%) (Auto) 0.2 Neutrophils # (Auto) 29.3 Lymphocytes # (Auto) 1.8 Monocytes # (Auto) 1.3 Eosinophils # (Auto) 0.0 Basophils # (Auto) 0.1 CBC Comment AUTO DIFF Differential Total Cells 100 Counted Neutrophils % (Manual) 83 Band Neutrophils % 5 Lymphocytes % 7 Monocytes % 4 Basophils % 1 Neutrophils # (Manual) 28.7 Differential Comment FINAL DIFF MANUAL Platelet Estimate NORMAL Platelet Morphology Comment NORMAL Ovalocytes 1+ Sodium Level 133 Potassium Level 5.3 Chloride Level 104 Carbon Dioxide Level 5.6 Anion Gap 23 Blood Urea Nitrogen 16 Creatinine 1.16 Estimat Glomerular Filtration 51 Rate Random Glucose 495 Lactic Acid Level 2.4 2.1 Calcium Level 9.9 Phosphorus Level 5.6 Magnesium Level 2.5 Total Bilirubin 0.3 Aspartate Amino Transf 15 (AST/SGOT) Alanine Aminotransferase 19 (ALT/SGPT) Alkaline Phosphatase 170 Troponin I 0.02 Total Protein 10.2 Albumin 4.7 Lipase 107 B-Hydroxybutyrate 11.47 Blood Gas Puncture Site I.V. Blood Gas Patient Temperature 98.6 Venous Blood pH 6.98 Venous Blood Partial Pressure 25 CO2 Venous Blood Partial Pressure 27 O2 Venous Blood HCO3 6 Venous Blood Oxygen Saturation 28 Venous Blood Oxygen Content 5.1 Venous Blood Base Excess -23.6 Oxygen Delivery Device ROOM AIR Blood Gas Inspired Oxygen 21 Urine Color LIGHT-YELLOW Urine Turbidity CLEAR Urine pH 5.5 Urine Specific [place] 1.019 Urine Protein 30 Urine Glucose (UA) 1000 Urine Ketones 150 Urine Occult Blood TRACE Urine Nitrite NEG Urine Bilirubin NEG Urine Urobilinogen LESS THAN 2.0 Urine Leukocyte Esterase LARGE Urine RBC 8 Urine WBC 11 Urine Squamous Epithelial 1 Cells Urine Bacteria RARE Microscopic Urinalysis Comment CULTURE INDICATED Test 01/05/17 01/05/17 01/06/17 01/06/17 19:45 23:12 03:20 10:11 Nasal Screen MRSA (PCR) MRSA NOT DETECTED Sodium Level 144 143 146 Potassium Level 4.1 3.2 3.1 Chloride Level 119 118 120 Carbon Dioxide Level 7.4 11.5 17.3 Anion Gap 18 14 9 Blood Urea Nitrogen 10 8 8 Creatinine 0.69 0.65 0.52 Estimat Glomerular Filtration 92 99 128 Rate Random Glucose 196 257 92 Lactic Acid Level 2.0 Calcium Level 8.2 8.0 8.3 Phosphorus Level 1.6 1.0 2.3 Magnesium Level 1.8 1.6 1.5 White Blood Count 22.0 Red Blood Count 5.00 Hemoglobin 9.7 Hematocrit 34.3 Mean Corpuscular Volume 68.6 Mean Corpuscular Hemoglobin 19.4 Mean Corpuscular Hemoglobin 28.2 Concent Red Cell Distribution Width 18.9 Platelet Count 230 Mean Platelet Volume 8.3 B-Hydroxybutyrate 2.79 Date/Time Procedure Status Source Growth 01/05/17 16:35 Aerobic Blood Culture - Preliminary Resulted Blood Peripheral NO GROWTH IN 1 DAY 01/05/17 16:35 Anaerobic Blood Culture - Preliminary Resulted Blood Peripheral NO GROWTH IN 1 DAY 01/05/17 15:00 Urine Culture Worksheet Urine Clean Catch Pending Result Diagram: 01/06/17 0320 01/06/17 1011 Imaging Last 72 hours Impressions Chest X-Ray 01/05/17 1354 Signed Impressions: Service Date/Time: Tuesday, January 05, 2017 14:08 - CONCLUSION: 1. No acute cardiopulmonary findings are identified. Luis Rey MD Assessment and Plan Problem List: (1) Vulvovaginitis Status: Acute Plan: Likely related to candidiasis. This is common in diabetic patients. If she does have candidiasis, this will be classified as a complicated infection because patient has poorly controlled diabetes as evidenced by DKA. Plan: Will obtain wet mount at bedside to rule out candidiasis, BV, trichomoniasis If positive, will recommend therapy with oral fluconazole 150 mg daily every 72 hours for 2 or 3 doses -or- topical azole daily for 7-14 days ADDENDUM 1449: Patient wet prep notable for trichomonas and vaginal bacteriosis Trichomonas will be treated with 2g Flagyl by mouth x 1 BV will be treated with Fluconazole 150mg daily every 72 hours for 2 doses (2) DKA (diabetic ketoacidoses) Status: Acute Plan: Management per primary team. Of note, diabetes increases the risk of yeast infections (3) UTI (urinary tract infection) Status: Acute Plan: Review of EMR notable for likely UTI based on leukocyte esterase and 11 WBCs. Urine culture is pending. Management per primary team. Problem Qualifiers (1) DKA (diabetic ketoacidoses): Qualified Code: E10.10 - Diabetic ketoacidosis without coma associated with type 1 diabetes mellitus (2) UTI (urinary tract infection): Qualified Code: N30.00 - Acute cystitis without hematuria Tara Boudreaux MD R1 Jan 06, 2017 12:36
[2017-01-06] MEDS ORDERED: FLUCONAZOLE 100 MG TAB PO SCH (15:00)
[2017-01-06] MEDS ORDERED: metroNIDAZOLE 500 MG TAB PO ONE (15:00)
[2017-01-06 16:03] LABS: HEMOGLOBIN A1a 1.9 %; HEMOGLOBIN A1b 0.9 %; HEMOGLOBIN Ao 74.1 %; HEMOGLOBIN F 2.2 %; HEMOGLOBIN LA1C 2.1 %; HEMOGLOBIN P3 4.7 %
[2017-01-06 16:32] LABS: BETA-HYDROXYBUTYRATE 0.57 MMOL/L (0.00-0.39); BICARBONATE 16.9 MEQ/L (21.0-32.0); MAGNESIUM 1.6 MG/DL (1.5-2.5); POTASSIUM 3.5 MEQ/L (3.5-5.1)
--- NOTE | 2017-01-06 17:38 | EKG ---
Date Performed: 01/05/2017 Time Performed: 17:18:55 PTAGE: 46 years EKG: SINUS TACHYCARDIA ST DEVIATION AND MODERATE T-WAVE ABNORMALITY, CONSIDER INFERIOR ISCHEMIA Consider inferior and lateral ischemia. ABNORMAL ECG PREVIOUS TRACING : 01/05/2017 14.14 DOCTOR: Isaac Poole Interpretating Date/Time 01/06/2017 17:37:48
--- NOTE | 2017-01-06 17:38 | EKG ---
Date Performed: 01/05/2017 Time Performed: 14:14:16 PTAGE: 46 years EKG: Sinus rhythm POSSIBLE RIGHT ATRIAL ENLARGEMENT POSSIBLE LEFT ATRIAL ENLARGEMENT ABNORMAL ECG NO PREVIOUS TRACING DOCTOR: Isaac Poole Interpretating Date/Time 01/06/2017 17:37:12
[2017-01-07] VITALS (11 sets, daily range): BP systolic 90–135; BP diastolic 50–79; PULSE 64–74; RESP 13–21; TEMP 98.4–98.5; O2SAT 97–99
[2017-01-07] MEDS: RESP: ALBUTEROL 2.5 MG/IPRATROPIUM 0.5 MG NEB (SCH) INH ×2 (03:27→09:38)
[2017-01-07] MEDS: CHLORHEXIDINE GLUCONATE 2 % 1 PACK (2 CLOTHS) TOP SCH (04:00)
[2017-01-07] MEDS: INSULIN ASPART SUPPLEMENTAL SCALE SQ SCH ×2 (06:26→12:08)
[2017-01-07] MEDS: PIPERACIL-TAZO 4.5 GM PREMIX 100 ML IV SCH ×2 (06:28→12:07)
[2017-01-07] MEDS: HEPARIN SODIUM - SQ 10,000 UNITS/ML VIAL SQ SCH (06:28)
[2017-01-07 07:00] LABS: AUTOMATED NEUTROPHIL # 4.9 TH/MM3 (1.8-7.7); BASOPHIL % 0.5 % (0.0-2.0); EOSINOPHIL # 0.1 TH/MM3 (0-0.4); EOSINOPHIL % 1.4 % (0.0-4.0); HEMO FLAGS DIFF FINAL; LYMPH % 25.5 % (9.0-44.0); LYMPHOCYTE # 1.9 TH/MM3 (1.0-4.8); MEAN CELL VOLUME 65.2 FL (80.0-100.0); MEAN CORPUSCULAR HEMOGLOBIN 20.2 PG (27.0-34.0); MEAN CORPUSCULAR HGB CONC 30.9 % (32.0-36.0); MONO % 6.9 % (0.0-8.0); NEUT % 65.7 % (16.0-70.0); PLATELET COUNT 196 TH/MM3 (150-450); RED BLOOD COUNT 4.29 MIL/MM3 (4.00-5.30); RED CELL DISTRIBUTION WIDTH 18.8 % (11.6-17.2); WHITE BLOOD COUNT 7.4 TH/MM3 (4.0-11.0)
[2017-01-07 07:25] LABS: BICARBONATE 20.8 MEQ/L (21.0-32.0); MAGNESIUM 1.7 MG/DL (1.5-2.5)
[2017-01-07] MEDS: FAMOTIDINE 20 MG TAB PO SCH (08:46)
[2017-01-07] MEDS: DOCUSATE SODIUM 50 MG/SENNA 8.6 MG TAB PO SCH (08:46)
[2017-01-07] MEDS: SODIUM CHLORIDE 0.9% FLUSH 10 ML FLUSH IV FLUSH SCH (08:48)
[2017-01-07] MEDS: ARTIFICIAL TEARS OPTH SOLN 15 ML BTL EACH EYE SCH (08:48)
[2017-01-07] MEDS: SODIUM CHLOR 0.9% 1000 ML INJ 1,000 ML IV SCH (08:49)
--- NOTE | 2017-01-07 08:50 | HHI.PR ---
Objective Vital Signs Date Time Temp Pulse Resp B/P Pulse Ox O2 Delivery O2 Flow Rate FiO2 01/07/17 06:00 73 01/07/17 04:00 98.5 68 13 102/57 98 01/07/17 04:00 68 01/07/17 02:00 71 01/07/17 00:00 68 01/07/17 00:00 98.4 68 14 90/50 97 01/06/17 22:00 72 01/06/17 20:00 98.3 74 16 105/55 98 01/06/17 20:00 78 01/06/17 19:59 98 21 01/06/17 18:00 83 01/06/17 17:00 74 01/06/17 16:00 76 01/06/17 16:00 76 01/06/17 16:00 76 23 89/53 100 01/06/17 15:00 80 01/06/17 15:00 80 24 88/53 100 01/06/17 15:00 80 01/06/17 15:00 80 01/06/17 15:00 80 01/06/17 14:00 82 01/06/17 14:00 82 18 116/65 100 01/06/17 14:00 82 01/06/17 14:00 82 01/06/17 14:00 82 01/06/17 14:00 82 18 116/65 100 01/06/17 13:00 89 26 111/69 100 01/06/17 13:00 89 26 111/69 100 01/06/17 13:00 89 01/06/17 13:00 89 01/06/17 13:00 89 01/06/17 13:00 89 01/06/17 12:00 84 01/06/17 12:00 84 01/06/17 12:00 84 15 106/56 100 01/06/17 12:00 84 15 106/56 100 01/06/17 12:00 84 01/06/17 12:00 84 01/06/17 11:00 85 12 104/68 100 01/06/17 11:00 85 12 104/68 100 01/06/17 11:00 85 01/06/17 11:00 85 01/06/17 11:00 85 01/06/17 11:00 85 01/06/17 10:00 81 01/06/17 10:00 81 01/06/17 10:00 81 01/06/17 10:00 81 01/06/17 10:00 81 14 100/59 100 01/06/17 10:00 81 14 100/59 100 01/06/17 10:00 81 01/06/17 09:00 86 01/06/17 09:00 86 01/06/17 09:00 86 01/06/17 09:00 86 01/06/17 09:00 86 17 89/52 100 01/06/17 09:00 86 17 89/52 100 01/06/17 09:00 86 01/06/17 09:00 86 17 89/52 100 01/06/17 09:00 86 01/06/17 08:51 100 21 I/O 01/06/17 01/06/17 01/06/17 01/07/17 01/07/17 01/07/17 07:00 15:00 23:00 07:00 15:00 23:00 Intake Total 1342 ml 1905 ml 1308 ml 912 ml Output Total 900 ml 450 ml 475 ml 275 ml Balance 442 ml 1455 ml 833 ml 637 ml Intake Oral 620 ml 100 ml 300 ml IV Total 1342 ml 1285 ml 1208 ml 612 ml Output Urine Total 900 ml 450 ml 475 ml 275 ml Stool Total 0 ml Result Diagram: 01/07/17 0606 01/07/17 0609 Assessment and Plan Problem List: (1) Vulvovaginitis Status: Acute Plan: 01/07/2017 @ 0845: Chart reviewed. Patient has been afebrile overnight. [employer]NAGER [employer] service consulted for vaginal discharge. Wet prep 01/07 notable for trichomonas and yeast. Treatment initiated yesterday for each condition as below. She is to receive another dose of Fluconazole 150mg PO on 01/09/2017 to complete treatment for candidal vaginal infection and f/u with PCP once discharged. MANAGER [employer] service will sign off at this time. Thank you for the consult. Please re- consult for any new questions or concerns. Hospital Course: Vulvovaginitis is likely related to candidiasis. This is common in diabetic patients. If she does have candidiasis, this will be classified as a complicated infection because patient has poorly controlled diabetes as evidenced by DKA. Patient wet prep notable for trichomonas and vaginal bacteriosis on 01/07/17 Trichomonas treated with 2g Flagyl by mouth x 1 on 01/07 BV treated with Fluconazole 150mg daily every 72 hours for 2 doses, first dose Recommend that she establish care with PCP or MANAGER [facility] as outpatient for routine women's health screening including Pap smear as she has not had one since the (2) DKA (diabetic ketoacidoses) Status: Acute Plan: Management per primary team. Of note, diabetes increases the risk of yeast infections (3) UTI (urinary tract infection) Status: Acute Plan: Review of EMR notable for likely UTI based on leukocyte esterase and 11 WBCs. Urine culture is pending. Management per primary team. Problem Qualifiers (1) DKA (diabetic ketoacidoses): Qualified Code: E10.10 - Diabetic ketoacidosis without coma associated with type 1 diabetes mellitus (2) UTI (urinary tract infection): Qualified Code: N30.00 - Acute cystitis without hematuria Tara Boudreaux MD R1 Jan 07, 2017 08:50
[2017-01-07] MEDS ORDERED: INSULIN DETEMIR 100 UNITS/ML VIAL SQ SCH (09:00)
[2017-01-07] MEDS ORDERED: POTASSIUM BICARBONATE 25 MEQ EFFERVESCENT TAB PO ONE (09:45)
[2017-01-07 11:45] LABS: AMPHETAMINE, URINE NEG (NEG); BARBITURATES, URINE NEG (NEG); COCAINE, URINE NEG (NEG)
--- NOTE | 2017-01-07 12:23 | HHI.CCPN ---
Subjective Remarks/Hospital Course The patient is a 46-year-old female who presents emergency department for 2 days of elevated blood glucose levels, dehydration, decreased urine output , and generalized lethargy. The patient does have a history of diabetes with previous diabetic ketoacidosis and diabetic,. The patient takes insulin 70/30, 20 units twice a day, last use was this morning. However, the patient has been obtaining her NovoLog 70/30 from [facility], has not seen a physician in over one year. The patient recently moved to the area 2 weeks ago and does not have a local primary physician. The patient denies any chest pain, shortness of breath , abdominal pain, or dysuria. She does complain of generalized weakness. Symptoms are moderate, possibly exacerbated by elevated blood glucose levels, and there are no current alleviating factors. Upon admission to the ED, the patient was noted to have ketonuria, with a blood glucose level 495. Critical care medicine was consulted for management. Subjective: 01/06: Patient transitioned from insulin infusion to sliding-scale insulin this a.m.. BMP pending. She was noted to have a vaginal discharge [facility] was consulted. By mouth diet 2200 ADA calorie instituted. 01/07: The patient was noted to have vaginal infections to include trichomonas and yeast infection. [facility] following for vaginal infections, antibiotics instituted. Urine showing gram-positive organism. Levemir initiated at 10 units/day still being covered with sliding scale. Discussed with patient, still elevated glucose level, and ketonuria. Patient requesting to leave immediately, requesting no further treatment. Patient states she gets insulin 70/30 free at [facility], and wants to leave. Discussed with the patient that she still had an infections that need treatment as well as adjustment of insulin for the next 24 hours. The patient stated an understanding and is requesting to leave AMA. Objective Vital Signs Date Time Temp Pulse Resp B/P Pulse Ox O2 Delivery O2 Flow Rate FiO2 01/07/17 10:00 69 18 120/74 98 01/07/17 04:00 98.5 01/06/17 19:59 21 01/05/17 18:08 Room Air Intake and Output 01/06/17 01/06/17 01/07/17 08:00 16:00 00:00 Intake Total 1342 ml 1905 ml 1308 ml Output Total 900 ml 450 ml 475 ml Balance 442 ml 1455 ml 833 ml Result Diagram: 01/07/17 0606 01/07/17 0609 Other Results Microbiology Date/Time Procedure Status Source Growth 01/05/17 15:00 Urine Culture - Final Complete Urine Clean Catch 50-100,000 CFU/ML MIXED GRAM POSITIVE... Imaging Last Impressions Chest X-Ray 01/05/17 1354 Signed Impressions: Service Date/Time: Thursday, January 05, 2017 14:08 - CONCLUSION: 1. No acute cardiopulmonary findings are identified. Luis Rey MD Objective Remarks GENERAL: Underweight female in no apparent distress SKIN: Warm and dry. HEAD: Atraumatic. Normocephalic. EYES: Pupils equal and round. No scleral icterus. No injection or drainage. ENT: No nasal bleeding or discharge. Mucous membranes pink and moist NECK: Trachea midline. No JVD. Uvula midline CARDIOVASCULAR: Regular rate, regular rhythm. RESPIRATORY: No accessory muscle use. Clear to auscultation. Breath sounds equal bilaterally. GASTROINTESTINAL: Abdomen soft, non-tender, nondistended. No guarding. MUSCULOSKELETAL: Extremities without clubbing, cyanosis, or edema. No obvious deformities. NEUROLOGICAL: Awake and alert. RASS 0. No gross focal/sensory deficits. Follows commands in all 4 extremities. Urinary Catheter: Yes Assessment to: Remove A/P Assessment and Plan Neurologic: GCS 15 Neurochecks per ICU protocol Respiratory Dyspnea-resolved Maintain O2 sat greater than 92%, currently on room air O2 sat 97% Bronchodilators every 2 hours when necessary for wheezing hest x-ray no acute process Cardiovascular: Sinus tachycardia secondary to hypovolemia due to DKA-resolved Telemetry-normal sinus rhythm Maintain MAP greater than 65 mmHg Renal: Discontinue Leiva catheter -- Strict I/Os FEN/GI: Diabetic ketoacidosis-resolved Metabolic acidosis secondary to DKA-resolved Levemir 10 units subcutaneous/daily Discontinue DKA protocol 2200-calorie ADA diet Diabetic education Heme/ID: Urine culturemixed gram-positive [id number] colonies Follow up urine culture results 01/05 blood cultures 2-NGTD Empiric dosing Zosyn (day 3) [facility] following Vaginal discharge-trichomonas, yeast-on Diflucan Endocrine: Diabetes mellitus DKA subcutaneous Levemir Prophylaxis: GI Prophylaxis Protonix DVT Prophylaxis -- SCDs Lines: Peripheral IVs 2 Dispo: Discussed with patient and PROFESSOR OF RADIOLOGY at bedside. The patient states an understanding and is is requesting to leave AMA immediately. Level 3 Physician Flory Echevarria MD Jan 07, 2017 12:23
--- NOTE | 2017-01-07 13:35 | HHI.DS ---
Discharge Summary Admission Date Jan 05, 2017 at 15:52 Discharge Date: Jan 07, 2017 Admitting Diagnosis DKA, dehydration , Sepsis Brief History The patient is a 46-year-old female who presents emergency department for 2 days of elevated blood glucose levels, dehydration, decreased urine output , and generalized lethargy. The patient does have a history of diabetes with previous diabetic ketoacidosis and diabetic,. The patient takes insulin 70/30, 20 units twice a day, last use was this morning. However, the patient has been obtaining her NovoLog 70/30 from [facility], has not seen a physician in over one year. The patient recently moved to the area 2 weeks ago and does not have a local primary physician. The patient denies any chest pain, shortness of breath , abdominal pain, or dysuria. She does complain of generalized weakness. Symptoms are moderate, possibly exacerbated by elevated blood glucose levels, and there are no current alleviating factors. Upon admission to the ED, the patient was noted to have ketonuria, with a blood glucose level 495. Critical care medicine was consulted for management. History PFSH Past Medical History Diabetes: Yes ?: Not LMP: 12/15/16 Past Surgical History Narrative Surgical Appendectomy, tonsillectomy, section Social History Alcohol Use: No Tobacco Use: No Substance Use: No Allergies-Medications Allergies-Medications (Allergen,Severity, Reaction): Coded Allergies: No Known Allergies (Unverified , 01/05/17) Reported Meds & Prescriptions Reported Meds & Active Scripts Active Reported Novolin 70-30 Inj (Insulin Human Isoph/Insulin Regular) 1,000 Unit/10 Ml Vial 20 Units SQ BID ROS Review of Systems Except as stated in HPI: all other systems reviewed are Neg General / Constitutional: No: Fever, Chills HENT: Positive: Lightheadedness Cardiovascular: No: Chest Pain or Discomfort Respiratory: No: Shortness of Breath Gastrointestinal: Positive: Nausea, No: Vomiting, Diarrhea, Abdominal Pain Genitourinary: Positive: Decreased Urinary Output, No: Dysuria Musculoskeletal: Positive: Weakness Neurologic: Positive: Weakness Endocrine: Positive: Polydipsia CBC/BMP: 01/07/17 0606 01/07/17 0609 Significant Findings Laboratory Tests Test 01/05/17 01/05/17 01/05/17 01/05/17 14:00 14:04 15:00 16:30 White Blood Count 32.6 TH/MM3 (4.0-11.0) Red Blood Count 6.84 MIL/MM3 (4.00-5.30) Hematocrit 50.0 % (35.0-46.0) Mean Corpuscular Volume 73.1 FL (80.0-100.0) Mean Corpuscular Hemoglobin 19.5 PG (27.0-34.0) Mean Corpuscular Hemoglobin 26.7 % Concent (32.0-36.0) Red Cell Distribution Width 19.9 % (11.6-17.2) Neutrophils (%) (Auto) 90.0 % (16.0-70.0) Lymphocytes (%) (Auto) 5.6 % (9.0-44.0) Neutrophils # (Auto) 29.3 TH/MM3 (1.8-7.7) Monocytes # (Auto) 1.3 TH/MM3 (0-0.9) Neutrophils % (Manual) 83 % (16-70) Lymphocytes % 7 % (9-44) Neutrophils # (Manual) 28.7 TH/MM3 (1.8-7.7) Ovalocytes 1+ (NORMAL) Sodium Level 133 MEQ/L (136-145) Potassium Level 5.3 MEQ/L (3.5-5.1) Carbon Dioxide Level 5.6 MEQ/L (21.0-32.0) Anion Gap 23 MEQ/L (5-15) Creatinine 1.16 MG/DL (0.50-1.00) Estimat Glomerular Filtration 51 ML/MIN (>89) Rate Random Glucose 495 MG/DL (74-106) Lactic Acid Level 2.4 mmol/L 2.1 mmol/L (0.4-2.0) (0.4-2.0) Phosphorus Level 5.6 MG/DL (2.5-4.9) Alkaline Phosphatase 170 U/L (45-117) Total Protein 10.2 GM/DL (6.4-8.2) B-Hydroxybutyrate 11.47 MMOL/L (0.00-0.39) Venous Blood pH 6.98 (7.360-7.400) Venous Blood Partial Pressure 25 mmHg (44-48) CO2 Venous Blood Partial Pressure 27 mmHg (35-40) O2 Venous Blood HCO3 6 mmol/L (22-26) Venous Blood Oxygen Saturation 28 % (70-76) Venous Blood Oxygen Content 5.1 Vol % (9.0-17.0) Venous Blood Base Excess -23.6 mmol/L (-2-2) Urine Protein 30 mg/dL (NEG-TRACE) Urine Glucose (UA) 1000 mg/dL (NEG) Urine Ketones 150 mg/dL (NEG) Urine Occult Blood TRACE (NEG) Urine Leukocyte Esterase LARGE (NEG) Urine RBC 8 /hpf (0-3) Urine WBC 11 /hpf (0-5) Urine Bacteria RARE /hpf (NONE) Test 01/05/17 01/06/17 01/06/17 01/06/17 23:12 03:20 10:11 13:30 Chloride Level 119 MEQ/L 118 MEQ/L 120 MEQ/L (98-107) (98-107) (98-107) Carbon Dioxide Level 7.4 MEQ/L 11.5 MEQ/L 17.3 MEQ/L (21.0-32.0) (21.0-32.0) (21.0-32.0) Anion Gap 18 MEQ/L (5-15) Random Glucose 196 MG/DL 257 MG/DL (74-106) (74-106) Hemoglobin A1c 14.2 % (4.3-6.0) Calcium Level 8.2 MG/DL 8.0 MG/DL 8.3 MG/DL (8.5-10.1) (8.5-10.1) (8.5-10.1) Phosphorus Level 1.6 MG/DL 1.0 MG/DL 2.3 MG/DL (2.5-4.9) (2.5-4.9) (2.5-4.9) White Blood Count 22.0 TH/MM3 (4.0-11.0) Hemoglobin 9.7 GM/DL (11.6-15.3) Hematocrit 34.3 % (35.0-46.0) Mean Corpuscular Volume 68.6 FL (80.0-100.0) Mean Corpuscular Hemoglobin 19.4 PG (27.0-34.0) Mean Corpuscular Hemoglobin 28.2 % Concent (32.0-36.0) Red Cell Distribution Width 18.9 % (11.6-17.2) Potassium Level 3.2 MEQ/L 3.1 MEQ/L (3.5-5.1) (3.5-5.1) B-Hydroxybutyrate 2.79 MMOL/L (0.00-0.39) Sodium Level 146 MEQ/L (136-145) Vaginal Trichomonas (Wet Prep) PRESENT (NONE) Vaginal Yeast (Wet Prep) PRESENT (NONE) Test 01/06/17 01/07/17 01/07/17 15:11 06:06 06:09 Chloride Level 115 MEQ/L 116 MEQ/L (98-107) (98-107) Carbon Dioxide Level 16.9 MEQ/L 20.8 MEQ/L (21.0-32.0) (21.0-32.0) Random Glucose 266 MG/DL 203 MG/DL (74-106) (74-106) Calcium Level 8.1 MG/DL 7.7 MG/DL (8.5-10.1) (8.5-10.1) Phosphorus Level 2.0 MG/DL 2.3 MG/DL (2.5-4.9) (2.5-4.9) B-Hydroxybutyrate 0.57 MMOL/L (0.00-0.39) Hemoglobin 8.7 GM/DL (11.6-15.3) Hematocrit 28.0 % (35.0-46.0) Mean Corpuscular Volume 65.2 FL (80.0-100.0) Mean Corpuscular Hemoglobin 20.2 PG (27.0-34.0) Mean Corpuscular Hemoglobin 30.9 % Concent (32.0-36.0) Red Cell Distribution Width 18.8 % (11.6-17.2) Potassium Level 3.0 MEQ/L (3.5-5.1) Creatinine 0.45 MG/DL (0.50-1.00) Hospital Course The patient is a 46-year-old female who presents emergency department for 2 days of elevated blood glucose levels, dehydration, decreased urine output , and generalized lethargy. The patient does have a history of diabetes with previous diabetic ketoacidosis and diabetic,. The patient takes insulin 70/30, 20 units twice a day, last use was this morning. However, the patient has been obtaining her NovoLog 70/30 from [facility], has not seen a physician in over one year. The patient recently moved to the area 2 weeks ago and does not have a local primary physician. The patient denies any chest pain, shortness of breath , abdominal pain, or dysuria. She does complain of generalized weakness. Symptoms are moderate, possibly exacerbated by elevated blood glucose levels, and there are no current alleviating factors. Upon admission to the ED, the patient was noted to have ketonuria, with a blood glucose level 495. Critical care medicine was consulted for management. Subjective: 01/06: Patient transitioned from insulin infusion to sliding-scale insulin this a.m.. BMP pending. She was noted to have a vaginal discharge [employer]IENCE OFFICER was consulted. By mouth diet 2200 ADA calorie instituted. 01/07: The patient was noted to have vaginal infections to include trichomonas and yeast infection. [employer]IENCE OFFICER following for vaginal infections, antibiotics instituted. Urine showing gram-positive organism. Levemir initiated at 10 units/day still being covered with sliding scale. Discussed with patient, still elevated glucose level, and ketonuria. Patient requesting to leave immediately, requesting no further treatment. Patient states she gets insulin 70/30 free at [facility], and wants to leave. Discussed with the patient that she still had an infections that need treatment as well as adjustment of insulin for the next 24 hours. The patient stated an understanding and is requesting to leave AMA. Pt Condition on Discharge: Guarded Discharge Instructions Additional Information Pt left AMA. Flory Mendez MD Jan 07, 2017 13:35
== END 2017-01-07 13:25 | disposition left against medical advice (07) | DRG 639 ==
LOC: NEPC 13:31 → NEDA 15:52 → HIMN 18:25
PROVIDERS: ADMIT Anesthesiology; ATTEND Anesthesiology
DX: E13.10 Other specified diabetes mellitus with ketoacidosis without coma (principal); B37.3 Candidiasis of vulva and vagina; E86.0 Dehydration; A59.9 Trichomoniasis, unspecified; R06.2 Wheezing; Z79.4 Long term (current) use of insulin
CPT/HCPCS: 71010; 80048; 80053; 80307; 81001; 82010; 82805; 82948; 83036; 83605; 83690; 83735; 84100; 84484; 85007; 85025; 85027; 87040; 87086; 87210; 87641; 93005; 94640; 94664; 96360; 96361; 96374; J0696; J1644; J1815; J1817; J1885; J2405; J2543; J3480; J7030; J7042; J7050

== ENCOUNTER 2018-05-04 03:12 | Inpatient (IN) ==
[2018-05-04] MEDS ORDERED: Dextrose 50% in Water 50 ML Vial IV.PUSH PRN (03:37)
[2018-05-04 03:57] LABS: Baso # (Auto) 0.1 th/mm3 (0.0-0.2); Baso % (Auto) 0.6 % (0.0-2.0); Hematocrit 44.8 % (35.0-46.0); Hemoglobin 13.2 gm/dL (11.6-15.3); Lymph % (Auto) 9.9 % (9.0-44.0); Mean Corpuscular Hemoglobin 21.3 pg (27.0-34.0); Mean Corpuscular Volume 72.2 fL (80.0-100.0); Mean Platelet Volume 9.1 fL (7.0-11.0); Mono # (Auto) 0.4 th/mm3 (0.0-0.9); Neut # (Auto) 17.9 th/mm3 (1.8-7.7); Neut % (Auto) 87.5 % (16.0-70.0); Platelet Count 372 th/mm3 (150-450); Red Blood Count 6.21 mil/mm3 (4.00-5.30); Red Cell Distribution Width 17.3 % (11.6-17.2); White Blood Count 20.4 th/mm3 (4.0-11.0)
[2018-05-04 03:59] LABS: VBG Base Excess -22.9 mmol/L (-2-2); VBG Blood Gas Oxygen Content 8.7 Vol % (9.0-17.0); VBG PCO2 19 mmHG (44-48); VBG PH 7.08 (7.360-7.400); VBG PO2 34 mmHG (35-40)
[2018-05-04] MEDS ORDERED: Sod Chloride 0.9% Inj 1,000 ML IV.SIG SCH ×2 (04:00→05:30)
[2018-05-04 04:13] LABS: Mean Corpuscular HGB Conc 29.5 % (32.0-36.0)
[2018-05-04 04:33] LABS: Alanine Aminotransferase 18 U/L (10-53); Albumin 4.5 g/dL (3.4-5.0); Alkaline Phosphatase 118 U/L (45-117); Anion Gap 25 meq/L (5-15); Aspartate Aminotransferase 14 U/L (15-37); Blood Urea Nitrogen 16 mg/dL (7-18); Calcium 8.9 mg/dL (8.5-10.1); Carbon Dioxide 5.9 meq/L (21.0-32.0); Chloride 105 meq/L (98-107); Glomerular Filtration Rate 63 mL/min (>89); Glucose,Random 431 mg/dL (74-106); Magnesium 2.2 mg/dL (1.5-2.5); Phosphorus 4.1 mg/dL (2.5-4.9); Potassium 5.2 meq/L (3.5-5.1); Sodium 136 meq/L (136-145); Total Protein 9.2 g/dL (6.4-8.2)
[2018-05-04] MEDS ORDERED: Sod Chloride 0.9% Inj 1,000 ML IV.SIG ONE (04:38)
[2018-05-04] MEDS ORDERED: Morphine Sulfate Inj 2 MG/ML Vial IV.PUSH ONE (04:50)
[2018-05-04] MEDS ORDERED: Sodium Phosphate Inj 15 MMOL in Sodium Chlor 0.9% Inj 100 ML IV.SIG PRN ×2 (04:51→06:19)
[2018-05-04] MEDS ORDERED: Potassium Chlor 40 mEq Premix 40 MEQ/100 ML PIGGYBACK IV.SIG PRN ×4 (04:51→06:19)
[2018-05-04] MEDS ORDERED: Potassium Chlor 20 mEq Premix 20 MEQ/100 ML PIGGYBACK IV.SIG PRN ×9 (04:51→06:19)
[2018-05-04 05:15] LABS: Bacteria,Urine Rare /hpf; Bilirubin,Urine Negative (Negative); Clarity,Urine Clear (Clear); Color,Urine Straw (Yellw/Straw); Glucose,Urine (UA) 500 or Greater mg/dL (Negative); Leukocyte Esterase,Urine Trace (Negative); Mucus,Urine Few /lpf (Occasional); Nitrite,Urine Negative (Negative); Specific Gravity,Urine 1.016 (1.002-1.035); Squamous Epithelial Cell,Urine 2 /hpf (0-5)
[2018-05-04] MEDS: Insulin Regular (For Infusion) 100 UNIT in Sodium Chlor 0.9% Inj 99 ML IV.CONT PRN ×2 (05:24→21:37)
--- NOTE | 2018-05-04 05:37 | CT ---
EXAM DATE: 05/04/2018 4:52 AM EDT AGE/SEX: 47 years / Female INDICATIONS: Abdominal pain and nausea X 4 days. Patient is in DKA. Patient also complains of low back pain. CLINICAL DATA: This is the patient's initial encounter. Patient reports that signs and symptoms have been present for 4 - 6 days and indicates a pain score of 7/10. MEDICAL/SURGICAL HISTORY: Diabetes. Appendectomy. ORAL CONTRAST: No oral contrast ingested. RADIATION DOSE: 6.71 CTDI (mGy) COMPARISON: No prior exams available for comparison. TECHNIQUE: Multiple contiguous axial images were obtained through the abdomen and pelvis following b olus infusion of 97 ml Omnipaque 350 (iohexol) nonionic water-soluble contrast as a single exam dos e. No oral contrast ingested. Using automated exposure control and adjustment of the mA and/or kV ac cording to patient size, radiation dose was kept as low as reasonably achievable to obtain optimal di agnostic quality images. DICOM format image data is available electronically for review and comparis on. FINDINGS: There is respiratory motion artifact. Lower chest: In the left lower lobe there is a 5 mm noncalcified pulmonary nodule. Hepatobiliary: No focal liver lesion is identified. Hepatic vasculature demonstrates no abnormality. No calcified gallstones are present. Kidneys: No hydronephrosis, stone, or mass. Adrenal Glands: Within normal limits. Spleen: Within normal limits. Pancreas: Within normal limits. Vascular: The aorta is nonaneurysmal. There is a rim calcified splenic artery aneurysm adjacent to th e splenic hilum measuring 9 mm. Bowel/Mesentery: A small hiatal hernia is present. Small bowel demonstrates no abnormality. No colon abnormality is seen. There is no free air or free fluid. Abdominal Wall: No hernia is visualized. Retroperitoneum: No lymphadenopathy. Bladder: No wall thickening or mass. Reproductive: There is a hypoenhancing mass in the right anterior uterine body measuring approximatel y 2.9 cm. A rim-enhancing corpus luteal cyst is present in the left ovary measuring 2.5 cm. Inguinal: No lymphadenopathy or hernia. Musculoskeletal: No acute osseous abnormality is identified. CONCLUSION: 1. No acute finding is identified to explain the clinical symptoms. 2. There is a 2.9 cm right uterine body mass with an appearance characteristic of a leiomyoma. 3. There is a 5 mm left lower lobe pulmonary nodule. Electronically signed by: Spencer Hernández MD 05/04/2018 5:35 AM EDT
[2018-05-04] MEDS: Sod Chloride 0.9% Inj 1,000 ML IV.CONT SCH ×6 (06:18→23:23)
[2018-05-04] MEDS ORDERED: Insulin Regular (For Infusion) 100 UNIT in Sodium Chlor 0.9% Inj 99 ML IV.CONT PRN (06:19)
--- NOTE | 2018-05-04 06:23 | XR ---
EXAM DATE: 05/04/2018 5:28 AM EDT AGE/SEX: 47 years / Female INDICATIONS: Shortness of breath. CLINICAL DATA: This is the patient's initial encounter. Patient reports that signs and symptoms have been present for 4 - 6 days and indicates a pain score of 0/10. MEDICAL/SURGICAL HISTORY: None. None. [place] [facility] [place]. . FINDINGS: Portable AP view of the chest demonstrates a normal-sized cardiac silhouette. No effusion, consolidat ion, or pneumothorax is identified. The bones and soft tissues demonstrate no acute finding. There is a 3 mm calcified nodule in the left upper lobe. No concerning pulmonary nodule is identified. CONCLUSION: No acute cardiopulmonary abnormality is identified. Electronically signed by: Spencer Hernández MD 05/04/2018 6:22 AM EDT
--- NOTE | 2018-05-04 06:36 | ED ---
HPI General Chief complaint: Nausea/Vomiting/Diarrhea Stated complaint: Medical/SOB Time Seen by Provider: 05/04/18 03:49 History of Present Illness HPI narrative: Patient 47-year-old female presents emergency department for evaluation of "I think him in DKA". Patient states that a few days ago she started just feeling generalized back pain radiating to her abdomen mild nausea. She states that when she feels ill she eats less so than before takes less insulin. She is feeling worse today so came in to be seen. Still complains of some mild back pain, no history of injury, no history of IV drug abuse as the patient vehemently. No chest pain no shortness of breath. Mild nausea, one episode of nonbilious nonbloody emesis. No diarrhea no constipation. Symptoms moderate, gradually worsening, associated signs symptoms in context as above peer Related Data Home Medications Medication Instructions Recorded Confirmed insulin NPH and regular human 1 sliding scale dose SUBCUT UD 05/04/18 05/04/18 [Novolin 70/30 U-100 Insulin] Allergies Allergy/AdvReac Type Severity Reaction Status Date / Time No Known Allergies Allergy Verified 05/04/18 03:26 Review of Systems ROS: all other systems reviewed are negative PMFSH Medical History Medical History Diabetes (Acute) Surgical History Surgical History H/O section (Acute) History of appendectomy (Acute) Hx of tonsillectomy (Acute) Social History Social History Substance History: No History of Abuse Second Hand Smoke Exposure: No Smoking Status: Never smoker How Often Do You Have a Drink Containing Alcohol: Never Recent Travel in [facility] within the Last 8 Weeks: No Recent Out of Country Travel within the Last 8 Weeks: No Immunization History Tetanus Immunization: <5 Years Exam Narrative Exam Narrative: GENERAL: Well-developed well-nourished, appears dehydrated. SKIN: Focused skin assessment warm/dry. Decreased skin turgor HEAD: Atraumatic. Normocephalic. EYES: Pupils equal and round. No scleral icterus. No injection or drainage. ENT: No nasal bleeding or discharge. Mucous membranes pink and dry peer. NECK: Trachea midline. No JVD. CARDIOVASCULAR: Tachycardia with regular rhythm. No murmur appreciated. RESPIRATORY: Tachypneic, bordering on kussmaul respirations no accessory muscle use. Clear to auscultation. Breath sounds equal bilaterally. GASTROINTESTINAL: Abdomen soft, non-tender, nondistended. Hepatic and splenic margins not palpable. MUSCULOSKELETAL: No obvious deformities. No clubbing. No cyanosis. No edema. NEUROLOGICAL: Awake and alert. No obvious cranial nerve deficits. Motor grossly within normal limits. Normal speech. PSYCHIATRIC: Appropriate mood and affect; insight and judgment normal. Course Initial Documented Vital Signs Temperature 98.2 F 05/04/18 03:21 Pulse Rate 108 H 05/04/18 03:21 Respiratory Rate 26 H 05/04/18 03:21 Blood Pressure 149/71 H 05/04/18 03:21 Pulse Oximetry 100 05/04/18 03:21 Last Documented Vital Signs Temperature 98.2 F 05/04/18 03:21 Pulse Rate 104 H 05/04/18 06:18 Respiratory Rate 16 05/04/18 06:18 Blood Pressure 144/65 H 05/04/18 06:18 Pulse Oximetry 100 05/04/18 06:18 Critical Care Time Critical Care Time: Yes Total Critical Care Time: 35 Attestation: Aggregate critical care time was 35 minutes. Time to perform other separately billable procedures was not included in the critical care time. My time did not include minutes spent treating any other patients simultaneously or on activities that did not directly contribute to the patient's treatment. The services I provided to this patient were to treat and/or prevent clinically significant deterioration that could result in: , disability, organ failure I provided critical care services requiring my management, as noted below: Chart data review, documentation time, medication orders and management, vital sign assessments/reviewing monitor data, ordering and reviewing lab tests, ordering and interpreting/reviewing x-rays and diagnostic studies, care of the patient and discussion of the patient with the admitting physicians. Medical Decision Making MDM Narrative Medical decision making narrative: Patient room to the emergency department, 47- year-old female with a history of diabetes, she states she was not feeling well , back pain and some mild nausea this week and was taking less insulin, she is in DKA today, pH is 7.0, anion gap of 25, bicarb of 5. She was given 2 L normal saline, appears somewhat dehydrated beyond this, additional liter of normal saline was added. Electrolytes actually look fair, and insulin drip was started. Discussed with Dr. Purcell for admission to the ICU. She hemodynamically is stable. CT scan of the abdomen, chest x-ray and physical exam do not suggest a secondary cause of her DKA. Medical Screen Exam Complete: Yes Emergency Medical Condition: Yes Lab Data Result diagrams: 05/04/18 03:47 05/04/18 03:47 Lab Results 05/04/18 05/04/18 05/04/18 Range/Units 03:38 03:47 03:47 WBC 20.4 H (4.0-11.0) th/mm3 RBC 6.21 H (4.00-5.30) mil/mm3 Hgb 13.2 (11.6-15.3) gm/dL Hct 44.8 (35.0-46.0) % MCV 72.2 L (80.0-100.0) fL MCH 21.3 L (27.0-34.0) pg MCHC 29.5 L (32.0-36.0) % RDW 17.3 H (11.6-17.2) % Plt Count 372 (150-450) th/mm3 MPV 9.1 (7.0-11.0) fL Neut % (Auto) 87.5 H (16.0-70.0) % Lymph % (Auto) 9.9 (9.0-44.0) % Mcdonough % (Auto) 2.0 (0.0-8.0) % Eos % (Auto) 0.0 (0.0-4.0) % Baso % (Auto) 0.6 (0.0-2.0) % Neut # (Auto) 17.9 H (1.8-7.7) th/mm3 Lymph # (Auto) 2.0 (1.0-4.8) th/mm3 Mcdonough # (Auto) 0.4 (0.0-0.9) th/mm3 Eos # (Auto) 0.0 (0.0-0.4) th/mm3 Baso # (Auto) 0.1 (0.0-0.2) th/mm3 WBC Differential . Differential Comment Auto diff final Puncture Site Iv Patient Temperature 98.6 VBG pH 7.08 L* (7.360-7.400) VBG pCO2 19 L* (44-48) mmHG VBG pO2 34 L (35-40) mmHG VBG HCO3 5 L* (22-26) mmol/L VBG O2 Saturation 47 L (70-76) % VBG O2 Content 8.7 L (9.0-17.0) Vol % VBG Base Excess -22.9 L (-2-2) mmol/L VBG Carboxyhemoglobin 0.7 (0-4) % VBG Methemoglobin 1.0 (0-2) % Hemoglobin 13.2 (12.0-16.0) G/DL Inspired O2 21 % Critical Value Yes Sodium 136 (136-145) meq/L Potassium 5.2 H (3.5-5.1) meq/L Chloride 105 (98-107) meq/L Carbon Dioxide 5.9 L (21.0-32.0) meq/L Anion Gap 25 H (5-15) meq/L BUN 16 (7-18) mg/dL Creatinine 0.96 (0.50-1.00) mg/dL Estimated GFR 63 L (>89) mL/min POC Glucose (68-110) mg/dl Random Glucose 431 H (74-106) mg/dL Calcium 8.9 (8.5-10.1) mg/dL Phosphorus 4.1 (2.5-4.9) mg/dL Magnesium 2.2 (1.5-2.5) mg/dL Total Bilirubin 0.4 (0.2-1.0) mg/dL AST 14 L (15-37) U/L ALT 18 (10-53) U/L Alkaline Phosphatase 118 H (45-117) U/L Total Protein 9.2 H (6.4-8.2) g/dL Albumin 4.5 (3.4-5.0) g/dL Urine Color (Yellw/Straw) Urine Clarity (Clear) Urine pH (5.0-8.5) Ur Specific [place] (1.002-1.035) Urine Protein (Neg-Trace) mg/dL Urine Glucose (UA) (Negative) mg/dL Urine Ketones (Negative) mg/dL Urine Occult Blood (Negative) Urine Nitrate (Negative) Urine Bilirubin (Negative) Urine Urobilinogen (Less than 2) mg/dL Ur Leukocyte Esterase (Negative) Urine RBC (0-3) /hpf Urine WBC (0-5) /hpf Ur Squamous Epith Cells (0-5) /hpf Urine Bacteria (None) /hpf Urine Mucus (Occasional) /lpf Micro UA Comment Ur Microscopic Review Urine Culture Comments 05/04/18 05/04/18 Range/Units 04:50 06:24 WBC (4.0-11.0) th/mm3 RBC (4.00-5.30) mil/mm3 Hgb (11.6-15.3) gm/dL Hct (35.0-46.0) % MCV (80.0-100.0) fL MCH (27.0-34.0) pg MCHC (32.0-36.0) % RDW (11.6-17.2) % Plt Count (150-450) th/mm3 MPV (7.0-11.0) fL Neut % (Auto) (16.0-70.0) % Lymph % (Auto) (9.0-44.0) % Mcdonough % (Auto) (0.0-8.0) % Eos % (Auto) (0.0-4.0) % Baso % (Auto) (0.0-2.0) % Neut # (Auto) (1.8-7.7) th/mm3 Lymph # (Auto) (1.0-4.8) th/mm3 Mcdonough # (Auto) (0.0-0.9) th/mm3 Eos # (Auto) (0.0-0.4) th/mm3 Baso # (Auto) (0.0-0.2) th/mm3 WBC Differential Differential Comment Puncture Site Patient Temperature VBG pH (7.360-7.400) VBG pCO2 (44-48) mmHG VBG pO2 (35-40) mmHG VBG HCO3 (22-26) mmol/L VBG O2 Saturation (70-76) % VBG O2 Content (9.0-17.0) Vol % VBG Base Excess (-2-2) mmol/L VBG Carboxyhemoglobin (0-4) % VBG Methemoglobin (0-2) % Hemoglobin (12.0-16.0) G/DL Inspired O2 % Critical Value Sodium (136-145) meq/L Potassium (3.5-5.1) meq/L Chloride (98-107) meq/L Carbon Dioxide (21.0-32.0) meq/L Anion Gap (5-15) meq/L BUN (7-18) mg/dL Creatinine (0.50-1.00) mg/dL Estimated GFR (>89) mL/min POC Glucose 307 H (68-110) mg/dl Random Glucose (74-106) mg/dL Calcium (8.5-10.1) mg/dL Phosphorus (2.5-4.9) mg/dL Magnesium (1.5-2.5) mg/dL Total Bilirubin (0.2-1.0) mg/dL AST (15-37) U/L ALT (10-53) U/L Alkaline Phosphatase (45-117) U/L Total Protein (6.4-8.2) g/dL Albumin (3.4-5.0) g/dL Urine Color Straw (Yellw/Straw) Urine Clarity Clear (Clear) Urine pH 5.0 (5.0-8.5) Ur Specific [place] 1.016 (1.002-1.035) Urine Protein 30 H (Neg-Trace) mg/dL Urine Glucose (UA) 500 or greater (Negative) mg/dL Urine Ketones 80 or greater H (Negative) mg/dL Urine Occult Blood Small H (Negative) Urine Nitrate Negative (Negative) Urine Bilirubin Negative (Negative) Urine Urobilinogen Less than 2 (Less than 2) mg/dL Ur Leukocyte Esterase Trace H (Negative) Urine RBC 1 (0-3) /hpf Urine WBC 2 (0-5) /hpf Ur Squamous Epith Cells 2 (0-5) /hpf Urine Bacteria Rare H (None) /hpf Urine Mucus Few H (Occasional) /lpf Micro UA Comment Culture not ind Ur Microscopic Review Not Reportable Urine Culture Comments Culture not ind Imaging Data Radiologist's impression: Abdomen/Pelvis CT 05/04/18 04:49 CONCLUSION: 1. No acute finding is identified to explain the clinical symptoms. 2. There is a 2.9 cm right uterine body mass with an appearance characteristic of a leiomyoma. 3. There is a 5 mm left lower lobe pulmonary nodule. Chest X-Ray 05/04/18 05:28 CONCLUSION: No acute cardiopulmonary abnormality is identified. Discharge Plan Discharge Disposition Patient Disposition: 30 Still Patient Discharge Condition Condition: Fair Discharge Details Diagnosis: DKA (diabetic ketoacidoses) Physicians Team ED Provider: Amadou Torres Primary Care Provider: Primary Care Viviana Gold Attending Provider: Garth Bowen Discharge Interventions Interventions: ED Discharge Assessment Last Done: 05/04/18 07:22 Status ED Status: Left Department Discharge Information Discharge Date/Time: 05/04/18 07:51
[2018-05-04] MEDS: Dextrose 5%/NaCl 0.9% Inj 1,000 ML IV.CONT SCH ×6 (08:09→23:22)
--- NOTE | 2018-05-04 08:47 | ECG ---
Date Performed: 05/04/2018 Time Performed: 03:44:04 PTAGE: 47 years EKG: Sinus rhythm NONSPECIFIC T-WAVE ABNORMALITY BORDERLINE ECG NO PREVIOUS TRACING DOCTOR: Iban Beal Interpretating Date/Time 05/04/2018 08:46:25
--- NOTE | 2018-05-04 11:12 | P.HPIM ---
History of Present Illness Primary Care Physician: No Primary Care Physician Chief Complaint: ' I'm not feeling good'. History of Present Illness: patient is a 47 y/o female with history of diabetes mellitus who presented to ER with nausea and vomiting. she says that she started to have some nausea and generalized weakness three days ago. she says that she initially thought it was a flu. then she started to throw up two days ago and ' she felt worse'. she says that she missed her evening dose of her insulin since she was sleeping. she denies any fever,chills,abdominal pain, chest pain or sob. she says that she doesn't have a PCP and just gets her insulin from [facility]. Inpatient Certification: I certify that the inpatient services were ordered in accordance with Medicare regulations governing the order. This includes certification that hospital inpatient services are reasonable and necessary and in the case of services not specified as inpatient-only under 42 CFR 419.22(n), that they are appropriately provided as inpatient services in accordance to with the 2-midnight benchmark under 43 CFR 412.3(e) Estimated Total Length of Stay (Days): 2 Plans for Post Hospital Care: Home Review of Systems All other systems reviewed negative except as stated in HPI PMFSH - History History Provided By: Patient - Medical History Medical History: Medical History (Last Updated 05/04/18 @ 03:24 by Mary Carmen López RN) Diabetes - Surgical History Surgical History: Surgical History (Last Updated 05/04/18 @ 03:24 by Mary Carmen López RN) H/O section History of appendectomy Hx of tonsillectomy - Family History Family History: Family History (Last Updated 05/04/18 @ 11:09 by Garth Bowen MD) Other Diabetes - Tobacco History Second Hand Smoke Exposure: No Tobacco Use In Past 30 Days: No Smoking Status: Never smoker - Alcohol History How Often Do You Have a Drink Containing Alcohol: Never - Substance Use History Substance History: No History of Abuse - Travel History Recent Travel in the [place] Within the Last 8 Weeks: No Recent Travel Out of the Country Within the Last 8 Weeks: No - Immunization History Tetanus Immunization: <5 Years Medications and Allergies Active Medications: Active Medications Chlorhexidine Gluconate (Chlorhexidine 2% Cloth) 3 pack TOPICAL DAILY@0400 [facility] Stop: 05/10/18 03:59 Chlorhexidine Gluconate (Chlorhexidine 2% Cloth) 3 pack TOPICAL DAILY@0400 PRN PRN Reason: Extra cloth needed Stop: 05/10/18 03:59 Chlorhexidine Gluconate (Chlorhexidine 2% Cloth) 3 pack TOPICAL DAILY@0400 [facility] Stop: 05/10/18 03:59 Chlorhexidine Gluconate (Chlorhexidine 2% Cloth) 3 pack TOPICAL DAILY@0400 PRN PRN Reason: Extra cloth needed Stop: 05/10/18 03:59 Dextrose (D50w Vial) 50 ml IV.PUSH UNSCH PRN PRN Reason: PER HYPOGLYCEMIA PROTOCOL Sodium Chloride (Ns Inj) 1,000 mls @ 0 mls/hr IV.SIG BOLUS [facility]ASMIN Stop: 05/05/18 04:01 Last Infusion: 05/04/18 05:24 Dose: Infused Dextrose/Sodium Chloride (D5w/Normal Saline Inj) 1,000 mls @ 200 mls/hr IV.CONT .Q5H [facility] Last Admin: 05/04/18 08:09 Dose: 200 mls/hr Potassium Chloride (Kcl 20 Meq Premix Inj) 20 meq in 100 mls @ 100 mls/hr IV.SIG Q1H PRN PRN Reason: for K+ 4.5 to 5 Potassium Chloride (Kcl 20 Meq Premix Inj) 20 meq in 100 mls @ 50 mls/hr IV.SIG Q2H PRN PRN Reason: for K+ 4.5 to 5 Potassium Chloride (Kcl 20 Meq Premix Inj) 20 meq in 100 mls @ 100 mls/hr IV.SIG Q1H PRN PRN Reason: for K+ 3.5 to 4.4 Potassium Chloride (Kcl 20 Meq Premix Inj) 20 meq in 100 mls @ 50 mls/hr IV.SIG Q2H PRN PRN Reason: for K+ 3.5 to 4.4 Potassium Chloride (Kcl 20 Meq Premix Inj) 20 meq in 100 mls @ 50 mls/hr IV.SIG Q2H PRN PRN Reason: for Initial K+ ONLY < 3.5 Potassium Chloride (Kcl 40 Meq Premix Inj) 40 meq in 100 mls @ 100 mls/hr IV.SIG Q1H PRN PRN Reason: for Initial K+ ONLY < 3.5 Potassium Chloride (Kcl 20 Meq Premix Inj) 20 meq in 100 mls @ 50 mls/hr IV.SIG Q2H PRN PRN Reason: for Subsequent K+ < 3.5 Potassium Chloride (Kcl 40 Meq Premix Inj) 40 meq in 100 mls @ 50 mls/hr IV.SIG Q2H PRN PRN Reason: for Subsequent K+ < 3.5 Sodium Phosphate 15 mmol/ (Sodium Chloride) 105 mls @ 25 mls/hr IV.SIG UNSCH PRN PRN Reason: for Phosphate Level < 1.0 Insulin Human Regular 100 unit (/ Sodium Chloride) 100 mls @ 7 mls/hr IV.CONT TITRATE PRN; Protocol PRN Reason: See protocol Last Admin: 05/04/18 05:24 Dose: 7 units/hr, 7 mls/hr Sodium Chloride (Ns Inj) 1,000 mls @ 250 mls/hr IV.CONT .Q4H YASMIN Last Infusion: 05/04/18 09:30 Dose: Infused Sodium Chloride (Ns Inj) 1,000 mls @ 0 mls/hr IV.SIG BOLUS YASMIN Last Infusion: 05/04/18 06:28 Dose: Infused Dextrose/Sodium Chloride (D5w/Normal Saline Inj) 1,000 mls @ 200 mls/hr IV.CONT .Q5H [facility] Insulin Human Regular 100 unit (/ Sodium Chloride) 100 mls @ 7 mls/hr IV.CONT TITRATE PRN; Protocol PRN Reason: See protocol Sodium Chloride (Ns Inj) 1,000 mls @ 250 mls/hr IV.CONT .Q4H [facility] Last Admin: 05/04/18 06:34 Dose: Not Given Potassium Chloride (Kcl 40 Meq Premix Inj) 40 meq in 100 mls @ 100 mls/hr IV.SIG Q1H PRN PRN Reason: for Initial K+ ONLY < 3.5 Potassium Chloride (Kcl 40 Meq Premix Inj) 40 meq in 100 mls @ 50 mls/hr IV.SIG Q2H PRN PRN Reason: for Subsequent K+ < 3.5 Potassium Chloride (Kcl 20 Meq Premix Inj) 20 meq in 100 mls @ 100 mls/hr IV.SIG Q1H PRN PRN Reason: for K+ 3.5 to 4.4 Potassium Chloride (Kcl 20 Meq Premix Inj) 20 meq in 100 mls @ 100 mls/hr IV.SIG Q1H PRN PRN Reason: for K+ 4.5 to 5 Potassium Chloride (Kcl 20 Meq Premix Inj) 20 meq in 100 mls @ 50 mls/hr IV.SIG Q2H PRN PRN Reason: for Initial K+ ONLY < 3.5 Potassium Chloride (Kcl 20 Meq Premix Inj) 20 meq in 100 mls @ 50 mls/hr IV.SIG Q2H PRN PRN Reason: for K+ 3.5 to 4.4 Potassium Chloride (Kcl 20 Meq Premix Inj) 20 meq in 100 mls @ 50 mls/hr IV.SIG Q2H PRN PRN Reason: for K+ 4.5 to 5 Sodium Phosphate 15 mmol/ (Sodium Chloride) 105 mls @ 25 mls/hr IV.SIG UNSCH PRN PRN Reason: for Phosphate Level < 1.0 Potassium Chloride (Kcl 20 Meq Premix Inj) 20 meq in 100 mls @ 50 mls/hr IV.SIG Q2H PRN PRN Reason: for Subsequent K+ < 3.5 Sodium Bicarbonate (Sodium Bicarbonate 8.4% Inj) 100 meq IV.PUSH UNSCH PRN PRN Reason: for pH less than 6.9 Sodium Bicarbonate (Sodium Bicarbonate 8.4% Inj) 50 meq IV.PUSH UNSCH PRN PRN Reason: for pH 6.9 to 7.0 Sodium Bicarbonate (Sodium Bicarbonate 8.4% Inj) 50 meq IV.PUSH UNSCH PRN PRN Reason: for pH 6.9 to 7.0 Sodium Bicarbonate (Sodium Bicarbonate 8.4% Inj) 100 meq IV.PUSH UNSCH PRN PRN Reason: for pH less than 6.9 Sodium Chloride (Ns Flush) 2 ml IV.FLUSH PRN PRN PRN Reason: FLUSH AFTER USING IV ACCESS Allergies Allergy/AdvReac Type Severity Reaction Status Date / Time No Known Allergies Allergy Verified 05/04/18 03:26 Home Medications Medication Instructions Recorded Confirmed Type insulin NPH and regular human 1 sliding scale dose SUBCUT UD 05/04/18 05/04/18 History [Novolin 70/30 U-100 Insulin] Exam Vital signs: Vital Signs 05/04/18 03:21 05/04/18 04:00 05/04/18 04:07 Temperature 98.2 F Pulse Rate 108 H 94 H Respiratory Rate 26 H 26 H Blood Pressure 149/71 H 160/95 H Pulse Oximetry 100 96 98 05/04/18 05:01 05/04/18 05:04 05/04/18 06:18 Temperature Pulse Rate 96 H 104 H Respiratory Rate 26 H 26 H 16 Blood Pressure 135/62 144/65 H Pulse Oximetry 96 100 05/04/18 08:00 05/04/18 10:00 Temperature Pulse Rate 105 H 102 H Respiratory Rate Blood Pressure Pulse Oximetry 100 Intake & Output 05/03/18 05/04/18 05/04/18 18:59 06:59 18:59 Intake Total 3000 / 3000 1000 / 1000 Output Total 650 / 650 Balance 2350 / 2350 1000 / 1000 Weight 65.771 kg Intake: IV 3000 / 3000 1000 / 1000 NS Inj 1,000 ML @ 250 mls/hr IV 1000 / 1000 .CONT .Q4H [facility] Rx#:[id number] NS Inj 1,000 ML @ Wide Open IV. 3000 / 3000 SIG BOLUS YASMIN Rx#:[id number] Output: Urine 650 / 650 Other: # Voids 4 - Constitutional no acute distress (but ill looking.) - Routine HEENT Exam Eye: Present: PERRL - Routine Neck Exam Present: supple - Routine Respiratory Exam Present: CTA bilaterally - Routine Cardiovascular Exam Present: tachycardia - Routine Abdominal Exam Present: soft - Routine Extremities Exam Comments: no pedal edema. - Routine Neurological Exam Present: alert, oriented X3 Results - Labs CBC & Chem 7: 05/04/18 03:47 05/04/18 11:49 Labs: Short CBC 05/04/18 Range/Units 03:47 WBC 20.4 H (4.0-11.0) th/mm3 Hgb 13.2 (11.6-15.3) gm/dL Hct 44.8 (35.0-46.0) % Plt Count 372 (150-450) th/mm3 [facility] 05/04/18 03:47 Sodium 136 Potassium 5.2 H Chloride 105 Carbon Dioxide 5.9 L BUN 16 Creatinine 0.96 Calcium 8.9 Liver Function 05/04/18 Range/Units 03:47 Total Bilirubin 0.4 (0.2-1.0) mg/dL AST 14 L (15-37) U/L ALT 18 (10-53) U/L Alkaline Phosphatase 118 H (45-117) U/L Albumin 4.5 (3.4-5.0) g/dL Urine 05/04/18 Range/Units 04:50 Urine Color Straw (Yellw/Straw) Urine Clarity Clear (Clear) Urine pH 5.0 (5.0-8.5) Ur Specific [place] 1.016 (1.002-1.035) Urine Protein 30 H (Neg-Trace) mg/dL Urine Glucose (UA) 500 or greater (Negative) mg/dL - Imaging Impressions Abdomen/Pelvis CT 05/04/18 04:49 CONCLUSION: 1. No acute finding is identified to explain the clinical symptoms. 2. There is a 2.9 cm right uterine body mass with an appearance characteristic of a leiomyoma. 3. There is a 5 mm left lower lobe pulmonary nodule. Chest X-Ray 05/04/18 05:28 CONCLUSION: No acute cardiopulmonary abnormality is identified. Caprini VTE Risk Assessment Caprini VTE Risk Assessment: Moderate/High Risk (score >= 2) Caprini Risk Assessment Model: Point Value = 1 Point Value = 2 Point Value = 3 Point Value = 5 Age 41-60 Minor surgery BMI > 25 kg/m2 Swollen legs Varicose veins or History of unexplained or recurrent spontaneous Oral contraceptives or hormone replacement Sepsis (< 1 month) Serious lung disease, including pneumonia (< 1 month) Abnormal pulmonary function Acute myocardial infarction Congestive heart failure (< 1 month) History of inflammatory bowel disease Medical patient at bed rest Age 61-74 Arthroscopic surgery Major open surgery (> 45 min) Laparoscopic surgery (> 45 min) Malignancy Confined to bed (> 72 hours) Immobilizing plaster cast Central venous access Age >= 75 History of VTE Family history of VTE Factor V Leiden Prothrombin [id number] Lupus anticoagulant Anticardiolipin antibodies Elevated serum homocysteine Heparin-induced thrombocytopenia Other congenital or acquired thrombophilia Stroke (< 1 month) Elective arthroplasty Hip, pelvis, or leg fracture Acute spinal cord injury (< 1 month) Prophylaxis Regimen: Total Risk Factor Score Risk Level Prophylaxis Regimen 0-1 Low Early ambulation 2 Moderate Order ONE of the following: *Sequential Compression Device (SCD) *Heparin 5000 units SQ BID 3-4 Higher Order ONE of the following medications: *Heparin 5000 units SQ TID *Enoxaparin/Lovenox 40 mg SQ daily (WT < 150 kg, CrCl > 30 mL/min) *Enoxaparin/Lovenox 30 mg SQ daily (WT < 150 kg, CrCl > 10-29 mL/min) *Enoxaparin/Lovenox 30 mg SQ BID (WT < 150 kg, CrCl > 30 mL/min) AND/OR *Sequential Compression Device (SCD) 5 or more Highest Order ONE of the following medications: *Heparin 5000 units SQ TID (Preferred with Epidurals) *Enoxaparin/Lovenox 40 mg SQ daily (WT < 150 kg, CrCl > 30 mL/min) *Enoxaparin/Lovenox 30 mg SQ daily (WT < 150 kg, CrCl > 10-29 mL/min) *Enoxaparin/Lovenox 30 mg SQ BID (WT < 150 kg, CrCl > 30 mL/min) AND *Sequential Compression Device (SCD) Assessment and Plan - Plan A/P - DKA continue with insulin drip and aggressive IV hydration per protocol- monitor electrolytes closely while on insulin drip. check A1c. paraeducator consulted. -leukocytosis- likely reactive- afebrile with negative CXR and UA- will monitor ; CBC tomorrow. -DVT/GI prophylaxis with subq Lovenox and PPI Discussed Condition With: the patient and RN.
[2018-05-04 12:41] LABS: Calcium 8.6 mg/dL (8.5-10.1); Carbon Dioxide 7.7 meq/L (21.0-32.0)
[2018-05-04] MEDS: Pantoprazole Inj 40 MG Vial IV.PUSH SCH (13:33)
[2018-05-04] MEDS: Enoxaparin Inj 40 MG/0.4 ML Syringe SQ SCH (13:33)
[2018-05-04 15:55] LABS: VBG Base Excess -16.8 mmol/L (-2-2); VBG Blood Gas Oxygen Content 7.3 Vol % (9.0-17.0); VBG PCO2 21 mmHG (44-48); VBG PH 7.26 (7.360-7.400); VBG PO2 32 mmHG (35-40)
[2018-05-04 16:49] LABS: Hemoglobin A1c 12.2 % (4.3-6.0)
[2018-05-04 19:28] LABS: Bacteria,Urine Many /hpf; Bilirubin,Urine Negative (Negative); Clarity,Urine Cloudy (Clear); Color,Urine Yellow (Yellw/Straw); Glucose,Urine (UA) 500 or Greater mg/dL (Negative); Leukocyte Esterase,Urine Large (Negative); Nitrite,Urine Negative (Negative); Specific Gravity,Urine 1.017 (1.002-1.035); Squamous Epithelial Cell,Urine 25 /hpf (0-5)
[2018-05-04 23:42] LABS: Anion Gap 10 meq/L (5-15); Blood Urea Nitrogen 10 mg/dL (7-18); Calcium 7.8 mg/dL (8.5-10.1); Carbon Dioxide 12.2 meq/L (21.0-32.0); Chloride 121 meq/L (98-107); Glomerular Filtration Rate Greater Than 89 mL/min (>89); Glucose,Random 190 mg/dL (74-106); Sodium 143 meq/L (136-145)
[2018-05-04 23:46] LABS: Potassium 2.7 meq/L (3.5-5.1)
[2018-05-05] MEDS: Potassium Chlor 20 mEq Premix 20 MEQ/100 ML PIGGYBACK IV.SIG PRN ×8 (00:05→17:31)
[2018-05-05] MEDS: Dextrose 5%/NaCl 0.9% Inj 1,000 ML IV.CONT SCH ×6 (00:06→23:26)
[2018-05-05] MEDS ORDERED: Chlorhexidine Gluconate 2% 1 Pack (2 Cloths) TOPICAL PRN ×2 (04:00)
[2018-05-05] MEDS ORDERED: Chlorhexidine Gluconate 2% 1 Pack (2 Cloths) TOPICAL SCH (04:00)
[2018-05-05 04:15] LABS: Baso # (Auto) 0.1 th/mm3 (0.0-0.2); Baso % (Auto) 0.5 % (0.0-2.0); Eos % (Auto) 0.3 % (0.0-4.0); Hematocrit 33.6 % (35.0-46.0); Hemoglobin 10.1 gm/dL (11.6-15.3); Lymph # (Auto) 2.1 th/mm3 (1.0-4.8); Lymph % (Auto) 19.1 % (9.0-44.0); Mean Corpuscular Volume 69.6 fL (80.0-100.0); Mean Platelet Volume 9.1 fL (7.0-11.0); Mono # (Auto) 0.7 th/mm3 (0.0-0.9); Neut # (Auto) 8.2 th/mm3 (1.8-7.7); Neut % (Auto) 74.1 % (16.0-70.0); Platelet Count 262 th/mm3 (150-450); Red Blood Count 4.83 mil/mm3 (4.00-5.30); White Blood Count 11.1 th/mm3 (4.0-11.0)
[2018-05-05 04:19] LABS: Mean Corpuscular HGB Conc 30.2 % (32.0-36.0)
[2018-05-05 04:43] LABS: Anion Gap 10 meq/L (5-15); Blood Urea Nitrogen 11 mg/dL (7-18); Calcium 8.2 mg/dL (8.5-10.1); Carbon Dioxide 13.7 meq/L (21.0-32.0); Chloride 120 meq/L (98-107); Glomerular Filtration Rate Greater Than 89 mL/min (>89); Glucose,Random 138 mg/dL (74-106); Sodium 144 meq/L (136-145)
[2018-05-05] MEDS: Chlorhexidine Gluconate 2% 1 Pack (2 Cloths) TOPICAL SCH (04:46)
[2018-05-05 04:50] LABS: Potassium 2.9 meq/L (3.5-5.1)
[2018-05-05 05:52] LABS: VBG Base Excess -12.5 mmol/L (-2-2); VBG Blood Gas Oxygen Content 7.4 Vol % (9.0-17.0); VBG PCO2 28 mmHG (44-48); VBG PH 7.29 (7.360-7.400); VBG PO2 32 mmHG (35-40)
[2018-05-05] MEDS: Enoxaparin Inj 40 MG/0.4 ML Syringe SQ SCH (08:33)
--- NOTE | 2018-05-05 09:53 | P.PNIM ---
Subjective Interval history: patient is a 47 y/o female with history of diabetes mellitus who presented to ER with nausea and vomiting. she says that she started to have some nausea and generalized weakness three days ago. she says that she initially thought it was a flu. then she started to throw up two days ago and ' she felt worse'. she says that she missed her evening dose of her insulin since she was sleeping. she denies any fever,chills,abdominal pain, chest pain or sob. she says that she doesn't have a PCP and just gets her insulin from [facility]. 05-05 CO2 HAS NOT NORMALIZED YET CONTINUE INSULIN DRIP DM DIET DW RN AND PT REPLACE ELECTROLYTES DW RN AND PT REPLACE POTASSIUM CONTINUE INSULIN DRIP Physical Exam Vital signs: Vital Signs 05/04/18 10:00 05/04/18 11:00 05/04/18 12:00 Temperature 97.7 F Pulse Rate 103 H 102 H 94 H Respiratory Rate 22 22 21 Blood Pressure 125/70 126/75 124/65 Pulse Oximetry 100 100 100 05/04/18 13:00 05/04/18 14:00 05/04/18 15:00 Temperature Pulse Rate 97 H 99 H 92 H Respiratory Rate 19 16 15 Blood Pressure 119/64 103/59 L 92/54 L Pulse Oximetry 100 100 100 05/04/18 16:00 05/04/18 17:00 05/04/18 18:00 Temperature 97.8 F Pulse Rate 91 H 86 83 Respiratory Rate 22 17 16 Blood Pressure 100/57 L 106/55 L 102/55 L Pulse Oximetry 100 100 100 05/04/18 20:00 05/04/18 22:00 05/05/18 00:00 Temperature 98.7 F 98.5 F Pulse Rate 78 80 76 Respiratory Rate 15 14 Blood Pressure 91/55 L 108/53 L Pulse Oximetry 100 100 05/05/18 02:00 05/05/18 04:00 05/05/18 06:00 Temperature 97.8 F Pulse Rate 84 80 77 Respiratory Rate 20 Blood Pressure 96/57 L Pulse Oximetry 05/05/18 07:52 Temperature Pulse Rate Respiratory Rate Blood Pressure Pulse Oximetry 99 Intake & Output 05/04/18 05/05/18 05/05/18 18:59 06:59 18:59 Intake Total 2480 / 2480 3505 / 3505 100 / 100 Output Total 725 / 725 600 / 600 Balance 1755 / 1755 2905 / 2905 100 / 100 Weight 71.1 kg Intake: IV 1999 / 1999 3265 / 3265 100 / 100 D5W/Normal Saline Inj 1,000 ML 1000 / 1000 2865 / 2865 @ 200 mls/hr IV.CONT .Q5H YASMIN Rx#:[id number] NovoLIN R (IV Infusion) 100 100 / 100 UNIT In NS Inj 99 ML @ 7 UNITS/ HR 7 mls/hr IV.CONT TITRATE PRN Rx#:[id number] NS Inj 1,000 ML @ 250 mls/hr IV 1000 / 1000 .CONT .Q4H YASMIN Rx#:[id number] KCl 20 mEq Premix Inj 20 meq In 300 / 300 100 / 100 100 ml @ 50 mls/hr IV.SIG Q2H PRN Rx#:[id number] Oral 480 / 480 240 / 240 Output: Urine 725 / 725 600 / 600 Other: # Voids 5 4 # Bowel Movements 0 0 Narrative: GENERAL: Awake alert and oriented x3 talkative and cooperative SKIN: Warm and dry. Multiple tattoos HEAD: Atraumatic normocephalic. EYES: Pupils equal and round. No scleral icterus. No injection or drainage. EOMI ENT: No nasal bleeding or discharge. Mucous membranes pink and moist. Tongue is midline NECK: Trachea midline. No JVD. Supple CARDIOVASCULAR: Regular rate and rhythm. S1-S2 no S3 or S4 RESPIRATORY: No accessory muscle use. Clear to auscultation. Breath sounds equal bilaterally. GASTROINTESTINAL: Abdomen soft, non-tender, nondistended. Hepatic and splenic margins not palpable. MUSCULOSKELETAL: Extremities without clubbing, cyanosis, or edema. No obvious deformities. NEUROLOGICAL: Awake and alert. No obvious cranial nerve deficits. Motor grossly within normal limits. Five out of 5 muscle strength in the arms and legs. Normal speech. PSYCHIATRIC: Appropriate mood and affect; insight and judgment normal. Results - Labs CBC & Chem 7: 05/05/18 02:38 05/05/18 02:38 Laboratory Results - last 24 hr 05/04/18 05/04/18 05/04/18 08:15 10:18 11:16 WBC RBC Hgb Hct MCV MCH MCHC RDW Plt Count MPV Neut % (Auto) Lymph % (Auto) [place] % (Auto) Eos % (Auto) Baso % (Auto) Neut # (Auto) Lymph # (Auto) [place] # (Auto) Eos # (Auto) Baso # (Auto) WBC Differential Differential Comment Puncture Site Patient Temperature VBG pH VBG pCO2 VBG pO2 VBG HCO3 VBG O2 Saturation VBG O2 Content VBG Base Excess VBG Carboxyhemoglobin VBG Methemoglobin Hemoglobin O2 Delivery Device Inspired O2 Critical Value Sodium Potassium Chloride Carbon Dioxide Anion Gap BUN Creatinine Estimated GFR POC Glucose 193 H 181 H Random Glucose Hemoglobin A1c Calcium Urine Color Urine Clarity Urine pH Ur Specific [place] Urine Protein Urine Glucose (UA) Urine Ketones Urine Occult Blood Urine Nitrate Urine Bilirubin Urine Urobilinogen Ur Leukocyte Esterase Urine RBC Urine WBC Urine WBC Clumps Ur Squamous Epith Cells Urine Bacteria Urine Yeast Micro UA Comment Ur Microscopic Review Urine Culture Comments Nasal Screen MRSA (PCR) Not detected 05/04/18 05/04/18 05/04/18 11:49 11:49 12:23 WBC RBC Hgb Hct MCV MCH MCHC RDW Plt Count MPV Neut % (Auto) Lymph % (Auto) [place] % (Auto) Eos % (Auto) Baso % (Auto) Neut # (Auto) Lymph # (Auto) [place] # (Auto) Eos # (Auto) Baso # (Auto) WBC Differential Differential Comment Puncture Site Patient Temperature VBG pH VBG pCO2 VBG pO2 VBG HCO3 VBG O2 Saturation VBG O2 Content VBG Base Excess VBG Carboxyhemoglobin VBG Methemoglobin Hemoglobin O2 Delivery Device Inspired O2 Critical Value Sodium 144 Potassium 4.0 D Chloride 121 H D Carbon Dioxide 7.7 L Anion Gap 15 BUN 11 Creatinine 0.73 Estimated GFR 86 L POC Glucose 165 H Random Glucose 160 H D Hemoglobin A1c 12.2 H Calcium 8.6 Urine Color Urine Clarity Urine pH Ur Specific [place] Urine Protein Urine Glucose (UA) Urine Ketones Urine Occult Blood Urine Nitrate Urine Bilirubin Urine Urobilinogen Ur Leukocyte Esterase Urine RBC Urine WBC Urine WBC Clumps Ur Squamous Epith Cells Urine Bacteria Urine Yeast Micro UA Comment Ur Microscopic Review Urine Culture Comments Nasal Screen MRSA (PCR) 05/04/18 05/04/18 05/04/18 13:24 14:27 15:28 WBC RBC Hgb Hct MCV MCH MCHC RDW Plt Count MPV Neut % (Auto) Lymph % (Auto) [place] % (Auto) Eos % (Auto) Baso % (Auto) Neut # (Auto) Lymph # (Auto) [place] # (Auto) Eos # (Auto) Baso # (Auto) WBC Differential Differential Comment Puncture Site Patient Temperature VBG pH VBG pCO2 VBG pO2 VBG HCO3 VBG O2 Saturation VBG O2 Content VBG Base Excess VBG Carboxyhemoglobin VBG Methemoglobin Hemoglobin O2 Delivery Device Inspired O2 Critical Value Sodium Potassium Chloride Carbon Dioxide Anion Gap BUN Creatinine Estimated GFR POC Glucose 183 H 155 H 146 H Random Glucose Hemoglobin A1c Calcium Urine Color Urine Clarity Urine pH Ur Specific [place] Urine Protein Urine Glucose (UA) Urine Ketones Urine Occult Blood Urine Nitrate Urine Bilirubin Urine Urobilinogen Ur Leukocyte Esterase Urine RBC Urine WBC Urine WBC Clumps Ur Squamous Epith Cells Urine Bacteria Urine Yeast Micro UA Comment Ur Microscopic Review Urine Culture Comments Nasal Screen MRSA (PCR) 05/04/18 05/04/18 05/04/18 15:50 16:05 17:15 WBC RBC Hgb Hct MCV MCH MCHC RDW Plt Count MPV Neut % (Auto) Lymph % (Auto) [place] % (Auto) Eos % (Auto) Baso % (Auto) Neut # (Auto) Lymph # (Auto) [place] # (Auto) Eos # (Auto) Baso # (Auto) WBC Differential Differential Comment Puncture Site Rn Patient Temperature 98.6 VBG pH 7.26 L* VBG pCO2 21 L VBG pO2 32 L VBG HCO3 9 L* VBG O2 Saturation 62 L VBG O2 Content 7.3 L VBG Base Excess -16.8 L VBG Carboxyhemoglobin 1.3 VBG Methemoglobin 1.4 Hemoglobin 8.3 L O2 Delivery Device Room air Inspired O2 21 Critical Value Yes Sodium Potassium Chloride Carbon Dioxide Anion Gap BUN Creatinine Estimated GFR POC Glucose 158 H 155 H Random Glucose Hemoglobin A1c Calcium Urine Color Urine Clarity Urine pH Ur Specific [place] Urine Protein Urine Glucose (UA) Urine Ketones Urine Occult Blood Urine Nitrate Urine Bilirubin Urine Urobilinogen Ur Leukocyte Esterase Urine RBC Urine WBC Urine WBC Clumps Ur Squamous Epith Cells Urine Bacteria Urine Yeast Micro UA Comment Ur Microscopic Review Urine Culture Comments Nasal Screen MRSA (PCR) 05/04/18 05/04/18 05/04/18 17:39 18:19 19:24 WBC RBC Hgb Hct MCV MCH MCHC RDW Plt Count MPV Neut % (Auto) Lymph % (Auto) [place] % (Auto) Eos % (Auto) Baso % (Auto) Neut # (Auto) Lymph # (Auto) [place] # (Auto) Eos # (Auto) Baso # (Auto) WBC Differential Differential Comment Puncture Site Patient Temperature VBG pH VBG pCO2 VBG pO2 VBG HCO3 VBG O2 Saturation VBG O2 Content VBG Base Excess VBG Carboxyhemoglobin VBG Methemoglobin Hemoglobin O2 Delivery Device Inspired O2 Critical Value Sodium Potassium Chloride Carbon Dioxide Anion Gap BUN Creatinine Estimated GFR POC Glucose 193 H 188 H Random Glucose Hemoglobin A1c Calcium Urine Color Yellow Urine Clarity Cloudy H Urine pH 5.0 Ur Specific [place] 1.017 Urine Protein 100 H Urine Glucose (UA) 500 or greater Urine Ketones 80 or greater H Urine Occult Blood Large H Urine Nitrate Negative Urine Bilirubin Negative Urine Urobilinogen Less than 2 Ur Leukocyte Esterase Large H Urine RBC 13 H Urine WBC 119 H Urine WBC Clumps Rare H Ur Squamous Epith Cells 25 Urine Bacteria Many H Urine Yeast Occasional H Micro UA Comment Culture indicated Ur Microscopic Review Not Reportable Urine Culture Comments Culture indicated Nasal Screen MRSA (PCR) 05/04/18 05/04/18 05/04/18 20:17 21:20 22:22 WBC RBC Hgb Hct MCV MCH MCHC RDW Plt Count MPV Neut % (Auto) Lymph % (Auto) [place] % (Auto) Eos % (Auto) Baso % (Auto) Neut # (Auto) Lymph # (Auto) [place] # (Auto) Eos # (Auto) Baso # (Auto) WBC Differential Differential Comment Puncture Site Patient Temperature VBG pH VBG pCO2 VBG pO2 VBG HCO3 VBG O2 Saturation VBG O2 Content VBG Base Excess VBG Carboxyhemoglobin VBG Methemoglobin Hemoglobin O2 Delivery Device Inspired O2 Critical Value Sodium Potassium Chloride Carbon Dioxide Anion Gap BUN Creatinine Estimated GFR POC Glucose 198 H 171 H 165 H Random Glucose Hemoglobin A1c Calcium Urine Color Urine Clarity Urine pH Ur Specific [place] Urine Protein Urine Glucose (UA) Urine Ketones Urine Occult Blood Urine Nitrate Urine Bilirubin Urine Urobilinogen Ur Leukocyte Esterase Urine RBC Urine WBC Urine WBC Clumps Ur Squamous Epith Cells Urine Bacteria Urine Yeast Micro UA Comment Ur Microscopic Review Urine Culture Comments Nasal Screen MRSA (PCR) 05/04/18 05/04/18 05/05/18 22:46 23:33 00:16 WBC RBC Hgb Hct MCV MCH MCHC RDW Plt Count MPV Neut % (Auto) Lymph % (Auto) [place] % (Auto) Eos % (Auto) Baso % (Auto) Neut # (Auto) Lymph # (Auto) [place] # (Auto) Eos # (Auto) Baso # (Auto) WBC Differential Differential Comment Puncture Site Patient Temperature VBG pH VBG pCO2 VBG pO2 VBG HCO3 VBG O2 Saturation VBG O2 Content VBG Base Excess VBG Carboxyhemoglobin VBG Methemoglobin Hemoglobin O2 Delivery Device Inspired O2 Critical Value Sodium 143 Potassium 2.7 L* D Chloride 121 H Carbon Dioxide 12.2 L Anion Gap 10 BUN 10 Creatinine 0.55 Estimated GFR Greater than 89 POC Glucose 170 H 176 H Random Glucose 190 H Hemoglobin A1c Calcium 7.8 L D Urine Color Urine Clarity Urine pH Ur Specific [place] Urine Protein Urine Glucose (UA) Urine Ketones Urine Occult Blood Urine Nitrate Urine Bilirubin Urine Urobilinogen Ur Leukocyte Esterase Urine RBC Urine WBC Urine WBC Clumps Ur Squamous Epith Cells Urine Bacteria Urine Yeast Micro UA Comment Ur Microscopic Review Urine Culture Comments Nasal Screen MRSA (PCR) 05/05/18 05/05/18 05/05/18 01:24 02:03 02:38 WBC RBC Hgb Hct MCV MCH MCHC RDW Plt Count MPV Neut % (Auto) Lymph % (Auto) [place] % (Auto) Eos % (Auto) Baso % (Auto) Neut # (Auto) Lymph # (Auto) [place] # (Auto) Eos # (Auto) Baso # (Auto) WBC Differential Differential Comment Puncture Site Patient Temperature VBG pH VBG pCO2 VBG pO2 VBG HCO3 VBG O2 Saturation VBG O2 Content VBG Base Excess VBG Carboxyhemoglobin VBG Methemoglobin Hemoglobin O2 Delivery Device Inspired O2 Critical Value Sodium 144 Potassium 2.9 L* Chloride 120 H Carbon Dioxide 13.7 L Anion Gap 10 BUN 11 Creatinine 0.65 Estimated GFR Greater than 89 POC Glucose 188 H 152 H Random Glucose 138 H Hemoglobin A1c Calcium 8.2 L Urine Color Urine Clarity Urine pH Ur Specific [place] Urine Protein Urine Glucose (UA) Urine Ketones Urine Occult Blood Urine Nitrate Urine Bilirubin Urine Urobilinogen Ur Leukocyte Esterase Urine RBC Urine WBC Urine WBC Clumps Ur Squamous Epith Cells Urine Bacteria Urine Yeast Micro UA Comment Ur Microscopic Review Urine Culture Comments Nasal Screen MRSA (PCR) 05/05/18 05/05/18 05/05/18 02:38 03:05 04:23 WBC 11.1 H RBC 4.83 Hgb 10.1 L D Hct 33.6 L MCV 69.6 L MCH 21.0 L MCHC 30.2 L RDW 17.0 Plt Count 262 MPV 9.1 Neut % (Auto) 74.1 H Lymph % (Auto) 19.1 [place] % (Auto) 6.0 Eos % (Auto) 0.3 Baso % (Auto) 0.5 Neut # (Auto) 8.2 H Lymph # (Auto) 2.1 [place] # (Auto) 0.7 Eos # (Auto) 0.0 Baso # (Auto) 0.1 WBC Differential . Differential Comment Auto diff final Puncture Site Patient Temperature VBG pH VBG pCO2 VBG pO2 VBG HCO3 VBG O2 Saturation VBG O2 Content VBG Base Excess VBG Carboxyhemoglobin VBG Methemoglobin Hemoglobin O2 Delivery Device Inspired O2 Critical Value Sodium Potassium Chloride Carbon Dioxide Anion Gap BUN Creatinine Estimated GFR POC Glucose 159 H 123 H Random Glucose Hemoglobin A1c Calcium Urine Color Urine Clarity Urine pH Ur Specific [place] Urine Protein Urine Glucose (UA) Urine Ketones Urine Occult Blood Urine Nitrate Urine Bilirubin Urine Urobilinogen Ur Leukocyte Esterase Urine RBC Urine WBC Urine WBC Clumps Ur Squamous Epith Cells Urine Bacteria Urine Yeast Micro UA Comment Ur Microscopic Review Urine Culture Comments Nasal Screen MRSA (PCR) 05/05/18 05/05/18 05/05/18 05:01 05:27 05:29 WBC RBC Hgb Hct MCV MCH MCHC RDW Plt Count MPV Neut % (Auto) Lymph % (Auto) [place] % (Auto) Eos % (Auto) Baso % (Auto) Neut # (Auto) Lymph # (Auto) [place] # (Auto) Eos # (Auto) Baso # (Auto) WBC Differential Differential Comment Puncture Site Peripheral line Patient Temperature 98.6 VBG pH 7.29 L* VBG pCO2 28 L VBG pO2 32 L VBG HCO3 13 L* VBG O2 Saturation 59 L VBG O2 Content 7.4 L VBG Base Excess -12.5 L VBG Carboxyhemoglobin 1.3 VBG Methemoglobin 1.5 Hemoglobin 8.9 L O2 Delivery Device Inspired O2 21 Critical Value Yes Sodium Potassium Chloride Carbon Dioxide Anion Gap BUN Creatinine Estimated GFR POC Glucose 128 H 175 H Random Glucose Hemoglobin A1c Calcium Urine Color Urine Clarity Urine pH Ur Specific [place] Urine Protein Urine Glucose (UA) Urine Ketones Urine Occult Blood Urine Nitrate Urine Bilirubin Urine Urobilinogen Ur Leukocyte Esterase Urine RBC Urine WBC Urine WBC Clumps Ur Squamous Epith Cells Urine Bacteria Urine Yeast Micro UA Comment Ur Microscopic Review Urine Culture Comments Nasal Screen MRSA (PCR) 05/05/18 05/05/18 05/05/18 06:34 07:57 08:58 WBC RBC Hgb Hct MCV MCH MCHC RDW Plt Count MPV Neut % (Auto) Lymph % (Auto) [place] % (Auto) Eos % (Auto) Baso % (Auto) Neut # (Auto) Lymph # (Auto) [place] # (Auto) Eos # (Auto) Baso # (Auto) WBC Differential Differential Comment Puncture Site Patient Temperature VBG pH VBG pCO2 VBG pO2 VBG HCO3 VBG O2 Saturation VBG O2 Content VBG Base Excess VBG Carboxyhemoglobin VBG Methemoglobin Hemoglobin O2 Delivery Device Inspired O2 Critical Value Sodium Potassium Chloride Carbon Dioxide Anion Gap BUN Creatinine Estimated GFR POC Glucose 188 H 207 H 173 H Random Glucose Hemoglobin A1c Calcium Urine Color Urine Clarity Urine pH Ur Specific [place] Urine Protein Urine Glucose (UA) Urine Ketones Urine Occult Blood Urine Nitrate Urine Bilirubin Urine Urobilinogen Ur Leukocyte Esterase Urine RBC Urine WBC Urine WBC Clumps Ur Squamous Epith Cells Urine Bacteria Urine Yeast Micro UA Comment Ur Microscopic Review Urine Culture Comments Nasal Screen MRSA (PCR) - Imaging ITS Impressions Abdomen/Pelvis CT 05/04/18 04:49 CONCLUSION: 1. No acute finding is identified to explain the clinical symptoms. 2. There is a 2.9 cm right uterine body mass with an appearance characteristic of a leiomyoma. 3. There is a 5 mm left lower lobe pulmonary nodule. Chest X-Ray 05/04/18 05:28 CONCLUSION: No acute cardiopulmonary abnormality is identified. - Procedures NONE Assessment and Plan - Plan - DKA continue with insulin drip and aggressive IV hydration per protocol- monitor electrolytes closely while on insulin drip. check A1c. community health educator consulted. -leukocytosis- likely reactive- afebrile with negative CXR and UA- will monitor ; CBC tomorrow. Positive UTI will continue on Rocephin 1 g IV daily Hypokalemia will replace Needs to remain on insulin drip since CO2 has not closed yet Diabetic diet -DVT/GI prophylaxis with subq Lovenox and PPI Continue insulin drip Code Status: Full code Discussed Condition With: RN and patient Discharge Planning: Once patient's CO2 is closed and gap remains closed and is tolerating a diet and blood sugars are under control will need help with medications at discharge
[2018-05-05 10:40] LABS: Magnesium 1.6 mg/dL (1.5-2.5); Phosphorus 0.8 mg/dL (2.5-4.9)
[2018-05-05 10:53] LABS: Thyroid Stimulating Hormone 2.1 uIU/mL (0.358-3.740)
[2018-05-05] MEDS: Pantoprazole Inj 40 MG Vial IV.PUSH SCH (11:27)
[2018-05-06 01:35] LABS: Alanine Aminotransferase 14 U/L (10-53); Albumin 2.8 g/dL (3.4-5.0); Anion Gap 8 meq/L (5-15); Aspartate Aminotransferase 10 U/L (15-37); Blood Urea Nitrogen 3 mg/dL (7-18); Calcium 7.8 mg/dL (8.5-10.1); Carbon Dioxide 18.8 meq/L (21.0-32.0); Chloride 117 meq/L (98-107); Glomerular Filtration Rate 89 mL/min (>89); Glucose,Random 151 mg/dL (74-106); Magnesium 1.6 mg/dL (1.5-2.5); Phosphorus 0.8 mg/dL (2.5-4.9); Potassium 3.3 meq/L (3.5-5.1); Sodium 144 meq/L (136-145)
[2018-05-06 01:53] LABS: Alkaline Phosphatase 84 U/L (45-117); Beta Hydroxybutyric Acid 0.26 mmol/L (0.00-0.39); Total Protein 6.1 g/dL (6.4-8.2)
[2018-05-06] MEDS: Potassium Chlor 20 mEq Premix 20 MEQ/100 ML PIGGYBACK IV.SIG PRN ×5 (02:28→09:00)
[2018-05-06] MEDS: Chlorhexidine Gluconate 2% 1 Pack (2 Cloths) TOPICAL SCH (04:06)
[2018-05-06] MEDS: Dextrose 5%/NaCl 0.9% Inj 1,000 ML IV.CONT SCH ×2 (04:06→08:26)
[2018-05-06 08:02] LABS: VBG Base Excess -6.4 mmol/L (-2-2); VBG Blood Gas Oxygen Content 9.5 Vol % (9.0-17.0); VBG PCO2 30 mmHG (44-48); VBG PH 7.38 (7.360-7.400); VBG PO2 39 mmHG (35-40)
[2018-05-06] MEDS: Enoxaparin Inj 40 MG/0.4 ML Syringe SQ SCH (08:26)
[2018-05-06 08:35] LABS: Baso # (Auto) 0.1 th/mm3 (0.0-0.2); Eos # (Auto) 0.1 th/mm3 (0.0-0.4); Eos % (Auto) 1.5 % (0.0-4.0); Hemoglobin 9.5 gm/dL (11.6-15.3); Lymph # (Auto) 1.9 th/mm3 (1.0-4.8); Lymph % (Auto) 32.1 % (9.0-44.0); Mean Corpuscular HGB Conc 31.6 % (32.0-36.0); Mean Corpuscular Hemoglobin 21.6 pg (27.0-34.0); Mean Corpuscular Volume 68.4 fL (80.0-100.0); Mean Platelet Volume 8.7 fL (7.0-11.0); Mono # (Auto) 0.4 th/mm3 (0.0-0.9); Mono % (Auto) 6.3 % (0.0-8.0); Neut # (Auto) 3.5 th/mm3 (1.8-7.7); Neut % (Auto) 59.1 % (16.0-70.0); Platelet Count 217 th/mm3 (150-450); Red Blood Count 4.38 mil/mm3 (4.00-5.30); White Blood Count 5.9 th/mm3 (4.0-11.0)
[2018-05-06 08:57] LABS: Anion Gap 9 meq/L (5-15); Blood Urea Nitrogen 3 mg/dL (7-18); Calcium 7.7 mg/dL (8.5-10.1); Carbon Dioxide 18.5 meq/L (21.0-32.0); Chloride 115 meq/L (98-107); Glomerular Filtration Rate Greater Than 89 mL/min (>89); Glucose,Random 185 mg/dL (74-106); Magnesium 1.4 mg/dL (1.5-2.5); Potassium 3.7 meq/L (3.5-5.1); Sodium 142 meq/L (136-145)
[2018-05-06 08:58] LABS: Beta Hydroxybutyric Acid 1.12 mmol/L (0.00-0.39); Phosphorus 1.3 mg/dL (2.5-4.9)
[2018-05-06] MEDS: Pantoprazole Inj 40 MG Vial IV.PUSH SCH (11:02)
[2018-05-06 11:09] VITALS: O2SAT 100
[2018-05-06 13:14] VITALS: BP 99/60; PULSE 77; RESP 21; TEMP 98.3
--- NOTE | 2018-05-06 15:26 | P.DS ---
Date of admission: 05/04/18 06:33 Primary care physician: No Primary Care Physician Attending physician on discharge: Walter Iyer Anticipated date of discharge: 05/06/18 Brief History from admission: patient is a 47 y/o female with history of diabetes mellitus who presented to ER with nausea and vomiting. she says that she started to have some nausea and generalized weakness three days ago. she says that she initially thought it was a flu. then she started to throw up two days ago and ' she felt worse'. she says that she missed her evening dose of her insulin since she was sleeping. she denies any fever,chills,abdominal pain, chest pain or sob. she says that she doesn't have a PCP and just gets her insulin from [facility]. Patient update on day of discharge: Patient is currently doing well. She denies any acute concerns. She has insulin at home. I discussed with her regarding follow-up with a physician at [facility]. She did not know about resident clinic as she recently moved from [place]. DS: Medications - Discharge Medications Prescriptions: ciprofloxacin HCl [Cipro] 500 mg PO Q12H #14 tab insulin NPH and regular human [Novolin 70/30 U-100 Insulin] 12 units SUBCUT BID@ 0800,1700 30 Days ml DS: Summary Hospital Course: Ms. Tadeo is a pleasant 47-year-old female with a history of diabetes mellitus who was admitted to the hospital due to nausea vomiting. She was found to have diabetic ketoacidosis. She was admitted to ICU and DKA protocol was initiated. Patient improved clinically and started tolerating p.o. food. On the day of discharge 05/06/2018, patient was already on subcu insulin. She is hemodynamically stable. Additionally, she complained of bilateral flank pain which is also now resolved. However due to suspicion for possible upper urinary tract infection, will discharge her on 7-day course of ciprofloxacin. I encouraged patient to follow-up with [facility] with regards to her diabetes. Patient takes NPH 70/30 for her diabetic control. - Time Spent with Patient Total time spent providing and/or coordinating discharge services: Less than 30 minutes - Quality: VTE Deep Vein Thrombosis/Pulmonary Embolism Present on Admission: No Exam Vital signs: Vital Signs 05/05/18 16:00 05/05/18 18:00 05/05/18 20:00 Temperature 98.5 F 98.4 F Pulse Rate 75 78 84 Respiratory Rate 15 20 Blood Pressure 98/58 L 106/58 L Pulse Oximetry 99 100 05/05/18 22:00 05/06/18 00:00 05/06/18 02:00 Temperature 98.5 F Pulse Rate 73 78 75 Respiratory Rate 18 Blood Pressure 100/52 L Pulse Oximetry 99 05/06/18 04:00 05/06/18 06:00 05/06/18 08:00 Temperature 98.5 F 98 F Pulse Rate 72 70 77 Respiratory Rate 18 20 Blood Pressure 110/69 121/69 Pulse Oximetry 99 100 05/06/18 10:00 05/06/18 12:00 Temperature 98.3 F Pulse Rate 83 73 Respiratory Rate 21 Blood Pressure 99/60 L Pulse Oximetry 100 Intake & Output 05/05/18 05/06/18 05/06/18 18:59 06:59 18:59 Intake Total 2020 / 2020 2620 / 2620 400 / 400 Output Total 750 / 750 Balance 1270 / 1270 2620 / 2620 400 / 400 Weight 71 kg 72.4 kg Intake: IV 1600 / 1600 2400 / 2400 400 / 400 D5W/Normal Saline Inj 1,000 ML 1000 / 1000 2000 / 2000 @ 200 mls/hr IV.CONT .Q5H YASMIN Rx#:[id number] KCl 20 mEq Premix Inj 20 meq In 400 / 400 400 / 400 300 / 300 100 ml @ 50 mls/hr IV.SIG Q2H PRN Rx#:[id number] Rocephin Inj 1,000 MG In NS Inj 100 / 100 100 / 100 100 ML @ 200 mls/hr IV.SIG Q24H YASMIN Rx#:[id number] Oral 420 / 420 220 / 220 Output: Urine 750 / 750 Other: # Voids 3 3 # Bowel Movements 0 0 Weight On Admission 71 kg Results Procedures completed during hospitalization: NONE Labs on day of discharge: Labs from last 24 hours 05/06/18 05/06/18 05/06/18 13:10 12:00 10:55 WBC RBC Hgb Hct MCV MCH MCHC RDW Plt Count MPV Neut % (Auto) Lymph % (Auto) Union % (Auto) Eos % (Auto) Baso % (Auto) Neut # (Auto) Lymph # (Auto) Union # (Auto) Eos # (Auto) Baso # (Auto) WBC Differential Differential Comment Puncture Site Patient Temperature VBG pH VBG pCO2 VBG pO2 VBG HCO3 VBG O2 Saturation VBG O2 Content VBG Base Excess VBG Carboxyhemoglobin VBG Methemoglobin Hemoglobin Inspired O2 Critical Value Sodium Potassium Chloride Carbon Dioxide Anion Gap BUN Creatinine Estimated GFR POC Glucose 217 H 228 H 251 H Random Glucose Hemoglobin A1c Calcium Phosphorus Magnesium Total Bilirubin AST ALT Alkaline Phosphatase Total Protein Albumin Beta-Hydroxybutyric Acd 05/06/18 05/06/18 05/06/18 09:22 07:55 07:50 WBC RBC Hgb Hct MCV MCH MCHC RDW Plt Count MPV Neut % (Auto) Lymph % (Auto) Union % (Auto) Eos % (Auto) Baso % (Auto) Neut # (Auto) Lymph # (Auto) Union # (Auto) Eos # (Auto) Baso # (Auto) WBC Differential Differential Comment Puncture Site Peripheral Patient Temperature 98.6 VBG pH 7.38 VBG pCO2 30 L VBG pO2 39 VBG HCO3 18 L VBG O2 Saturation 72 VBG O2 Content 9.5 VBG Base Excess -6.4 L VBG Carboxyhemoglobin 1.9 VBG Methemoglobin 1.3 Hemoglobin 9.4 L Inspired O2 21 Critical Value No Sodium 142 Potassium 3.7 Chloride 115 H Carbon Dioxide 18.5 L Anion Gap 9 BUN 3 L Creatinine 0.43 L Estimated GFR Greater than 89 POC Glucose 169 H Random Glucose 185 H Hemoglobin A1c Calcium 7.7 L Phosphorus 1.3 L Magnesium 1.4 L Total Bilirubin AST ALT Alkaline Phosphatase Total Protein Albumin Beta-Hydroxybutyric Acd 1.12 H D 05/06/18 05/06/18 05/06/18 07:49 07:35 06:54 WBC 5.9 RBC 4.38 Hgb 9.5 L Hct 30.0 L MCV 68.4 L MCH 21.6 L MCHC 31.6 L RDW 17.0 Plt Count 217 MPV 8.7 Neut % (Auto) 59.1 Lymph % (Auto) 32.1 Union % (Auto) 6.3 Eos % (Auto) 1.5 Baso % (Auto) 1.0 Neut # (Auto) 3.5 Lymph # (Auto) 1.9 Union # (Auto) 0.4 Eos # (Auto) 0.1 Baso # (Auto) 0.1 WBC Differential . Differential Comment Auto diff final Puncture Site Patient Temperature VBG pH VBG pCO2 VBG pO2 VBG HCO3 VBG O2 Saturation VBG O2 Content VBG Base Excess VBG Carboxyhemoglobin VBG Methemoglobin Hemoglobin Inspired O2 Critical Value Sodium Potassium Chloride Carbon Dioxide Anion Gap BUN Creatinine Estimated GFR POC Glucose 190 H 145 H Random Glucose Hemoglobin A1c Calcium Phosphorus Magnesium Total Bilirubin AST ALT Alkaline Phosphatase Total Protein Albumin Beta-Hydroxybutyric Acd 05/06/18 05/06/18 05/06/18 05:57 05:02 04:01 WBC RBC Hgb Hct MCV MCH MCHC RDW Plt Count MPV Neut % (Auto) Lymph % (Auto) Union % (Auto) Eos % (Auto) Baso % (Auto) Neut # (Auto) Lymph # (Auto) Union # (Auto) Eos # (Auto) Baso # (Auto) WBC Differential Differential Comment Puncture Site Patient Temperature VBG pH VBG pCO2 VBG pO2 VBG HCO3 VBG O2 Saturation VBG O2 Content VBG Base Excess VBG Carboxyhemoglobin VBG Methemoglobin Hemoglobin Inspired O2 Critical Value Sodium Potassium Chloride Carbon Dioxide Anion Gap BUN Creatinine Estimated GFR POC Glucose 108 158 H 195 H Random Glucose Hemoglobin A1c Calcium Phosphorus Magnesium Total Bilirubin AST ALT Alkaline Phosphatase Total Protein Albumin Beta-Hydroxybutyric Acd 05/06/18 05/06/18 05/06/18 03:01 02:07 01:01 WBC RBC Hgb Hct MCV MCH MCHC RDW Plt Count MPV Neut % (Auto) Lymph % (Auto) Union % (Auto) Eos % (Auto) Baso % (Auto) Neut # (Auto) Lymph # (Auto) Union # (Auto) Eos # (Auto) Baso # (Auto) WBC Differential Differential Comment Puncture Site Patient Temperature VBG pH VBG pCO2 VBG pO2 VBG HCO3 VBG O2 Saturation VBG O2 Content VBG Base Excess VBG Carboxyhemoglobin VBG Methemoglobin Hemoglobin Inspired O2 Critical Value Sodium Potassium Chloride Carbon Dioxide Anion Gap BUN Creatinine Estimated GFR POC Glucose 181 H 189 H 128 H Random Glucose Hemoglobin A1c Calcium Phosphorus Magnesium Total Bilirubin AST ALT Alkaline Phosphatase Total Protein Albumin Beta-Hydroxybutyric Acd 05/06/18 05/05/18 05/05/18 00:48 23:55 22:57 WBC RBC Hgb Hct MCV MCH MCHC RDW Plt Count MPV Neut % (Auto) Lymph % (Auto) Union % (Auto) Eos % (Auto) Baso % (Auto) Neut # (Auto) Lymph # (Auto) Union # (Auto) Eos # (Auto) Baso # (Auto) WBC Differential Differential Comment Puncture Site Patient Temperature VBG pH VBG pCO2 VBG pO2 VBG HCO3 VBG O2 Saturation VBG O2 Content VBG Base Excess VBG Carboxyhemoglobin VBG Methemoglobin Hemoglobin Inspired O2 Critical Value Sodium 144 Potassium 3.3 L Chloride 117 H Carbon Dioxide 18.8 L Anion Gap 8 BUN 3 L Creatinine 0.71 Estimated GFR 89 POC Glucose 178 H 194 H Random Glucose 151 H Hemoglobin A1c Calcium 7.8 L Phosphorus 0.8 L Magnesium 1.6 Total Bilirubin 0.3 AST 10 L ALT 14 Alkaline Phosphatase 84 Total Protein 6.1 L D Albumin 2.8 L D Beta-Hydroxybutyric Acd 0.26 05/05/18 05/05/18 05/05/18 22:02 21:03 19:59 WBC RBC Hgb Hct MCV MCH MCHC RDW Plt Count MPV Neut % (Auto) Lymph % (Auto) Union % (Auto) Eos % (Auto) Baso % (Auto) Neut # (Auto) Lymph # (Auto) Union # (Auto) Eos # (Auto) Baso # (Auto) WBC Differential Differential Comment Puncture Site Patient Temperature VBG pH VBG pCO2 VBG pO2 VBG HCO3 VBG O2 Saturation VBG O2 Content VBG Base Excess VBG Carboxyhemoglobin VBG Methemoglobin Hemoglobin Inspired O2 Critical Value Sodium Potassium Chloride Carbon Dioxide Anion Gap BUN Creatinine Estimated GFR POC Glucose 218 H 236 H 152 H Random Glucose Hemoglobin A1c Calcium Phosphorus Magnesium Total Bilirubin AST ALT Alkaline Phosphatase Total Protein Albumin Beta-Hydroxybutyric Acd 05/05/18 05/05/18 05/05/18 19:05 18:04 17:19 WBC RBC Hgb Hct MCV MCH MCHC RDW Plt Count MPV Neut % (Auto) Lymph % (Auto) Union % (Auto) Eos % (Auto) Baso % (Auto) Neut # (Auto) Lymph # (Auto) Union # (Auto) Eos # (Auto) Baso # (Auto) WBC Differential Differential Comment Puncture Site Patient Temperature VBG pH VBG pCO2 VBG pO2 VBG HCO3 VBG O2 Saturation VBG O2 Content VBG Base Excess VBG Carboxyhemoglobin VBG Methemoglobin Hemoglobin Inspired O2 Critical Value Sodium Potassium Chloride Carbon Dioxide Anion Gap BUN Creatinine Estimated GFR POC Glucose 143 H 162 H 194 H Random Glucose Hemoglobin A1c Calcium Phosphorus Magnesium Total Bilirubin AST ALT Alkaline Phosphatase Total Protein Albumin Beta-Hydroxybutyric Acd 05/05/18 05/05/18 05/05/18 16:19 15:19 02:38 WBC RBC Hgb Hct MCV MCH MCHC RDW Plt Count MPV Neut % (Auto) Lymph % (Auto) Union % (Auto) Eos % (Auto) Baso % (Auto) Neut # (Auto) Lymph # (Auto) Union # (Auto) Eos # (Auto) Baso # (Auto) WBC Differential Differential Comment Puncture Site Patient Temperature VBG pH VBG pCO2 VBG pO2 VBG HCO3 VBG O2 Saturation VBG O2 Content VBG Base Excess VBG Carboxyhemoglobin VBG Methemoglobin Hemoglobin Inspired O2 Critical Value Sodium Potassium Chloride Carbon Dioxide Anion Gap BUN Creatinine Estimated GFR POC Glucose 208 H 225 H Random Glucose Hemoglobin A1c 12.0 H Calcium Phosphorus Magnesium Total Bilirubin AST ALT Alkaline Phosphatase Total Protein Albumin Beta-Hydroxybutyric Acd - Impressions ITS Impressions Abdomen/Pelvis CT 05/04/18 04:49 CONCLUSION: 1. No acute finding is identified to explain the clinical symptoms. 2. There is a 2.9 cm right uterine body mass with an appearance characteristic of a leiomyoma. 3. There is a 5 mm left lower lobe pulmonary nodule. Chest X-Ray 05/04/18 05:28 CONCLUSION: No acute cardiopulmonary abnormality is identified. Discharge Plan - Discharge Disposition Patient Disposition: 01 Discharge Home - Discharge Condition Condition: Fair - Discharge Order Discharge Orders: Discharge Order (Routine); Ordered 05/06/18 Ordered By: Walter Iyer - Discharge Details Anticipated Discharge Date: 05/06/18 - Physicians Team Primary Care Provider: Primary Care Viviana Gold Attending Provider: Walter yIer
== END 2018-05-06 14:55 | disposition home or self-care (01) ==
LOC: NEPE 03:12 → NEDA 06:33 → N03 08:08
PROVIDERS: ADMIT Hospitalist; ATTEND Hospitalist